=== PATIENT | female | born 1960 | race Caucasian/White ===

== ENCOUNTER → 2017-02-21 | Day surgery (SDC) | payer BC ==
[2017-02-01 14:10] VITALS: BMI 32.0
[~2017-02-21] VITALS: Ht 162.6 cm; Wt 86.4 kg
[~2017-02-21] MED LIST: CALC-51 PO; CITA20TA9 PO; LIDOCAINE HCL 2% 2 ML VIAL (20MG/ML) ONE; LISI40TA PO; METO-479 PO; MIDAZOLAM HCL 1 MG/ML 2ML VIAL ONE; MULTTAB58 PO; PROPOFOL IV EMULSION 10 MG/ML 20 ML VIAL IV ONE; SIMV40TA2 PO; SODIUM CHLORIDE 0.9% 500ML 500 ML IV ONE
[2017-02-21 12:14] VITALS: Ht 162.6 cm; Wt 86.4 kg
--- NOTE | 2017-02-21 12:59 | Endo History and Physical ---
History & Physical Date of Service: Feb 21, 2017. Chief Complaint: HX OF POLYPS Referring Physician: DR Sindy CAMACHO History of Present Illness 56 yo CF who presents for colonoscopy secondary to history of colon polyps. Past Surgical History Hx Cardiac Surgery: No Hx Internal Defibrillator: No Hx Pacemaker: No Hx Abdominal Surgery: No Hx of Implantable Prosthesis: No Hx Post-Op Nausea and Vomiting: No Hx Cancer Surgery: No Hx Thoracic Surgery: No Hx Urinary Tract Surgery: Yes (BLADDER TACK) Family History None Social History Smoking Status: Never Smoker Hx Substance Use: No Hx Alcohol Use: Yes (OCCASIONALLY) Allergies Coded Allergies: Morphine (Unverified Allergy, Unknown, RASH AND HALLUCINATIONS, 02/21/17) Current Medications Reported Home Medications Medications Dose Route/Sig Max Daily Dose Days Date Category [Calcium] 1 Tab PO QAM 02/01/17 Reported Multivitamin (Multiple Vitamin) 1 Tab Tab 1 Tab PO QAM 02/01/17 Reported Zocor (Simvastatin) 40 Mg Tab 40 Mg PO QPM 02/01/17 Reported Toprol Xl (Metoprolol Succinate) 100 Mg Tab 100 Mg PO HS 03/29/12 Reported Prinivil (Lisinopril) 40 Mg Tab 40 Mg PO QAM 03/19/12 Reported Celexa (Citalopram Hydrobromide) 20 Mg Tab 10 Mg PO QAM 03/19/12 Reported Vital Signs Weight (Kilograms): 86.36 Height (Feet): 5 Height (Inches): 4 Date Time Temp Pulse Resp B/P (MAP) Pulse Ox O2 Delivery O2 Flow Rate FiO2 02/21/17 12:20 36.7 68 20 156/85 (108) 97 Room Air Physical Exam General Appearance: WD/WN, no apparent distress Respiratory/Chest: Auscultation: breath sounds normal Cardiovascular: Heart Auscultation: RRR Abdomen: Bowel Sounds: normal Inspection & Palpation: soft, non-distended, no tenderness, guarding & rebound Assessment and Plan Assessment: 56 yo CF who presents for colonoscopy secondary to history of colon polyps. Plan: Proceed with colonoscopy.
--- NOTE | 2017-02-21 13:27 | Discharge Instructions ---
Endoscopy Patient Instructions Date / Procedure(s) Performed Feb 21, 2017. Colonoscopy Allergy Information Coded Allergies: Morphine (Unverified Allergy, Unknown, RASH AND HALLUCINATIONS, 02/21/17) Discharge Date / Findings Feb 21, 2017. Colon polyp Internal hemorrhoids Medication Instructions OK to resume all medications today as prescribed Reported Home Medications Medications Dose Route/Sig Max Daily Dose Days Date Category [Calcium] 1 Tab PO QAM 02/01/17 Reported Multivitamin (Multiple Vitamin) 1 Tab Tab 1 Tab PO QAM 02/01/17 Reported Zocor (Simvastatin) 40 Mg Tab 40 Mg PO QPM 02/01/17 Reported Toprol Xl (Metoprolol Succinate) 100 Mg Tab 100 Mg PO HS 03/29/12 Reported Prinivil (Lisinopril) 40 Mg Tab 40 Mg PO QAM 03/19/12 Reported Celexa (Citalopram Hydrobromide) 20 Mg Tab 10 Mg PO QAM 03/19/12 Reported Provider Instructions Activity Restrictions - No exercising or heavy lifting for 24 hours. - Do not drink alcohol the day of the procedure. - Do not drive a car or operate machinery until the day after the procedure. - Do not make any important decisions or sign important papers in 24 hours after the procedure. Following Day: - Return to full activity which may include returning to work/school. Diet Start your diet with liquids and light foods (jello, soup, juice, toast). Then eat your usual diet if not nauseated. Treatment For Common After Affects For mild abdominal pain, bloating, or excessive gas: - Rest - Eat lightly - Lie on right side Follow-Up Information Follow-up with DR Sindy CAMACHO as scheduled Anesthesia Information What You Should Know You have had a procedure that required some medicine to reduce anxiety and discomfort. This treatment is called moderate sedation. After receiving the treatment, you may be sleepy, but you will be able to breathe on your own. The effects of the treatment may last for several hours. Follow these instructions along with Activity/Diet recommendations noted above: * Do NOT do anything where dizziness or clumsiness would be dangerous. * Rest quietly at home today, then you can be up and about tomorrow. * Have a responsible person stay with you the rest of today. * You may have had an I.V. today. If so, you may take the dressing off later today. Recommendations Call your doctor if: * Trouble breathing * Continuous vomiting for more than 24 hours * Temperature above 101 degrees * Severe abdominal pain or bloating * Pain not relieved by pain medicine ordered * There is increased drainage or redness from any incision * A large amount of rectal bleeding greater than 2-3 tablespoons. (If you had a polyp/s removed or have hemorrhoids, a small amount of blood - from the rectum is to be expected.) * You have any unanswered questions or concerns. IN THE EVENT OF A SERIOUS EMERGENCY, GO TO THE NEAREST EMERGENCY ROOM Your discharge instructions were prepared by provider Russel Katz. Patient Instructions Signature Page Carmelita Hernandez Patient (or Guardian) Signature/Date: I have read and understand the instructions given to me by my caregivers. Caregiver/RN/Doctor Signature/Date: The above-named patient and/or guardian has received patient instructions on this date. + Original Patient Signature Page (only) stays with chart. Please make copy for patient.
--- NOTE | 2017-02-21 13:31 | GI REPORT ---
Procedure Date: 02/21/2017 12:51 PM Procedure: Colonoscopy Indications: High risk colon cancer surveillance: Personal history of colonic polyps Medicines: Monitored Anesthesia Care Complications: No immediate complications. Estimated Blood Loss: Estimated blood loss: none. Procedure: Pre-Anesthesia Assessment: - Prior to the procedure, a History and Physical was performed, and patient medications and allergies were reviewed. The patient's tolerance of previous anesthesia was also reviewed. The risks and benefits of the procedure and the sedation options and risks were discussed with the patient. All questions were answered, and informed consent was obtained. Prior Anticoagulants: The patient has taken no previous anticoagulant or antiplatelet agents. ASA Grade Assessment: II - A patient with mild systemic disease. After reviewing the risks and benefits, the patient was deemed in satisfactory condition to undergo the procedure. After I obtained informed consent, the scope was passed under direct vision. Throughout the procedure, the patient's blood pressure, pulse, and oxygen saturations were monitored continuously. The scope was introduced through the anus and advanced to the cecum, identified by appendiceal orifice and ileocecal valve. The colonoscopy was performed without difficulty. The patient tolerated the procedure well. The quality of the bowel preparation was good. The appendiceal orifice and the rectum were photographed. Findings: The perianal and digital rectal examinations were normal. A 4 mm polyp was found in the ascending colon. The polyp was sessile. The polyp was removed with a hot snare. Resection and retrieval were complete. The polyp was removed with a cold snare. Resection and retrieval were complete. Non-bleeding internal hemorrhoids were found during retroflexion. The hemorrhoids were small. Impression: - One 4 mm polyp in the ascending colon, removed with a hot snare and removed with a cold snare. Resected and retrieved. - Non-bleeding internal hemorrhoids. Recommendation: - Resume previous diet. - Continue present medications. - Repeat colonoscopy for surveillance based on pathology results. - Return to primary care physician as previously scheduled. Russel Katz, DO 02/21/2017 1:30:39 PM This report has been signed electronically. Note Initiated On: 02/21/2017 12:51 PM I attest to the content of the Intraoperative Record and orders documented therein, exceptions below
[2017-02-21 13:57] VITALS: BP 126/92; PULSE 72; O2SAT 99
--- NOTE | 2017-02-21 14:04 | Anesthesiology Progress Note ---
Anesthesia Post Op Note Date & Time Feb 21, 2017 at 14:04 Vital Signs Pain Intensity: 0 Vital Signs Past 12 Hours Date Time Temp Pulse Resp B/P (MAP) Pulse Ox O2 Delivery O2 Flow Rate FiO2 02/21/17 13:57 72 18 126/92 (103) 99 Room Air 02/21/17 13:42 67 20 138/82 (100) 99 Room Air 02/21/17 13:27 83 20 117/74 (88) 97 Room Air 02/21/17 12:20 36.7 68 20 156/85 (108) 97 Room Air Notes Mental Status: alert / awake / arousable, participated in evaluation Pt Amnestic to Procedure: Yes Nausea / Vomiting: adequately controlled Pain: adequately controlled Airway Patency, RR, SpO2: stable & adequate BP & HR: stable & adequate Hydration State: stable & adequate Anesthetic Complications: no major complications apparent
== END | disposition home or self-care (01) ==
LOC: C.GI 12:01
PROVIDERS: ATTEND Internal Medicine
DX: Z12.11 Encounter for screening for malignant neoplasm of colon (principal); D12.2 Benign neoplasm of ascending colon; K64.8 Other hemorrhoids; Z86.010 Personal history of colon polyps; F32.9 Major depressive disorder, single episode, unspecified; Z96.652 Presence of left artificial knee joint; F41.9 Anxiety disorder, unspecified; Z90.89 Acquired absence of other organs

== ENCOUNTER → 2017-03-26 | Outpatient (CLI) | payer BC ==
[~2017-03-26] MED LIST changes: -LIDOCAINE HCL 2% 2 ML VIAL (20MG/ML) ONE; -MIDAZOLAM HCL 1 MG/ML 2ML VIAL ONE; -PROPOFOL IV EMULSION 10 MG/ML 20 ML VIAL IV ONE; -SODIUM CHLORIDE 0.9% 500ML 500 ML IV ONE
[2017-03-26 17:51] LABS: BASO % 0.3 %; BASO ABS # 0.02 K/uL (0-0.2); EOS % 1.3 %; EOS ABS # 0.09 K/uL (0-0.5); HEMATOCRIT 41.5 % (37-47); HEMOGLOBIN 13.7 g/dL (12.0-16.0); IG# 0.04 K/uL (0.00-0.02); LYMPH % 27.8 %; LYMPH ABS # 1.87 K/uL (1.2-3.4); MEAN PLATELET VOLUME 9.3 fL (7.4-10.4); MONO % 7.3 %; MONO ABS # 0.49 K/uL (0.11-0.59); NEUT % 62.7 %; NEUT ABS # 4.22 K/uL (1.4-6.5); PLATELET COUNT 234 K/uL (130-400); RED CELL DISTRIBUTION WIDTH CV 13.3 % (11.5-14.5); RED CELL DISTRIBUTION WIDTH SD 43.9 fL (36.4-46.3); WHITE BLOOD COUNT 6.73 K/uL (4.8-10.8)
[2017-03-26 18:03] LABS: ALT/SGPT 29 U/L (12-78); AST/SGOT 17 U/L (15-37); BLOOD UREA NITROGEN 13 mg/dl (7-18); CALCIUM 8.7 mg/dl (8.5-10.1); CARBON DIOXIDE 28 mmol/L (21-32); CHOLESTEROL 163 mg/dl (0-200); CREATININE 0.67 mg/dl (0.60-1.20); GLUCOSE 98 mg/dl (70-99); POTASSIUM 3.8 mmol/L (3.5-5.1); SODIUM 139 mmol/L (136-145)
[2017-03-26 18:13] LABS: ALKALINE PHOSPHATASE 69 U/L (45-117); LDL CHOLESTEROL CALCULATED 65 mg/dl; TOTAL PROTEIN 7.5 gm/dl (6.4-8.2)
[2017-03-27 06:06] LABS: HEMOGLOBIN A1C 5.7 % (4.5-5.6)
== END | disposition home or self-care (01) ==
LOC: C.LABPBG 14:04
PROVIDERS: ATTEND Internal Medicine
DX: B35.1 Tinea unguium (principal); I10 Essential (primary) hypertension; E78.5 Hyperlipidemia, unspecified; F41.9 Anxiety disorder, unspecified; R73.9 Hyperglycemia, unspecified; Z11.59 Encounter for screening for other viral diseases

== ENCOUNTER 2022-02-21 07:54 | Observation (INO) ==
--- NOTE | 2022-02-21 08:30 | Emergency Department Note ---
History of Present Illness General Chief complaint: Diarrhea Stated complaint: DIARRHEA Time Seen by Provider: 02/21/22 08:27 History of Present Illness Maximum Pain Intensity: 5 This 61-year-old female patient presents to the emergency department with a friend for evaluation of diarrhea. She started at 1 AM this morning she started having diarrhea and took 2 Imodium without improvement. Now having small amounts of bright red blood and mucous in her stool. She states that it was a moderate amount of bleeding. Feels like she has to have a BM and just passes small amounts of stool and blood. Has had about 8 episodes of diarrhea since 1 am. Also having a lot of crampy and sharp lower abdominal pain since the symptoms started. She also feels very weak. Denies any fevers, but has had chills. She has a history of colitis when she was younger. Denies urinary symptoms. No known hemorrhoids. Has been taking a lot of NSAIDs recently b/c of headaches and joint pains. No blood thinners. Denies any chest pain or SOB. She was not feeling sick at all before this morning. Does not have frequent diarrhea, but will periodically get diarrhea. Denies recent antibiotic use, recent travel, drinking from outside water sources/well water, and denies known ill contacts. Last colonoscopy was 5 years ago and was normal per patient. Has had polyps in the past. No family history of colon cancer. Has never been dx with UC or Crohn's Disease. Home Medications Medication Instructions Recorded Confirmed Type lisinopril 40 mg tablet See Rx Instructions .Route 01/10/21 02/21/22 Rx .COMPLEX #90 tabs metoprolol succinate 100 mg See Rx Instructions .Route 01/10/21 02/21/22 Rx tablet,extended release 24 hr .COMPLEX #90 tabs betamethasone valerate 0.1 % 1 applic topical BID PRN skin 06/16/21 02/21/22 Rx topical cream irritation #45 grams rosuvastatin 5 mg tablet 5 mg PO DAILY #90 tabs 07/19/21 02/21/22 Rx alprazolam 0.25 mg tablet 0.25 mg PO DAILY PRN anxiety #30 02/08/22 02/21/22 Rx tabs Allergies Allergy/AdvReac Type Severity Reaction Status Date / Time morphine Allergy Unknown RASH AND Unverified 06/16/21 11:03 HALLUCINATIONS Past Med/Surg History Medical History Paravaginal defect Surgical History History of appendectomy History of left knee replacement 2014 History of thyroidectomy partial Family History Father , age 60 Myocardial infarction Hypertension Son Asthma Mother COPD (chronic obstructive pulmonary disease) Osteoarthritis Diabetes Grandmother (Maternal) Breast cancer Other Heart disease Denies family history of Ovarian cancer Prostate cancer Lung cancer Colorectal cancer Stroke Social History Smoking Status: Never smoker Second Hand Exposure: No; Hx Alcohol Use: Yes Alcohol type: beer Alcohol Intake Frequency: 2-4 x/Month Hx Substance Use: No Preferred Language: Danish Communication Ability: Effective Visual Impairment: Limited Hearing Ability: Normal marital status: Current Living Situation: Other current occupational status: employed 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 Physical Exam Vital Signs Vital Signs - 24 hr 02/21/22 08:02 Temperature 37 C Temperature Source Temporal Artery Scan Pulse Rate 54 L Respiratory Rate 20 Respiratory Effort / Characteristics Non-Labored Spontaneous Respiratory Depth Normal Respiratory Pattern Regular Blood Pressure 177/74 H Blood Pressure Mean 108 Blood Pressure Position Sitting Pulse Oximetry 98 Oxygen Delivery Method Room Air Sepsis Recent Fever Within 48 Hours No Sepsis New/Unexplained Change in Mental Status N/A Sepsis Action Taken by Nursing No Action Required VITALS: Vitals are noted on the nurse's note and reviewed by myself. GENERAL: Non toxic, no acute distress, non-diaphoretic. SKIN: Capillary refill <2 sec. EARS: External auditory canals clear, tympanic membranes pearly coello without erythema or effusion bilaterally. EYES: PERRLA. EOMI. Conjunctivae without injection, sclerae without icterus. NOSE: Patent without discharge. MOUTH: Mucous membranes moist. Uvula midline. Airway patent. NECK: Supple without nuchal rigidity. HEART: Regular rate and rhythm without gallops or rubs, but she does have a grade III/ systolic flow murmur that she states is known and was diagnosed as benign. LUNGS: Clear to auscultation bilaterally without wheezes, rales or rhonchi. No retractions or accessory muscle use. ABDOMEN: Positive bowel sounds x 4. Normal tympanic percussion. Soft, tender to palpation in the lower abdomen worse on the left side, without masses or organomegaly. Shafer sign negative. No guarding or rebound tenderness. No focal RLQ or LLQ tenderness. RECTAL EXAM: Permission to perform the exam. The patient declined mark up designer for the exam. No external lesions noted. No external hemorrhoids. Normal sphincter tone. Internal hemorrhoids are not enlarged. No masses, tears, fistulas, fissures, abscess, or other lesion noted. Stool is brown and Hemoccult positive. MUSCULOSKELETAL: No gross musculoskeletal defects. NEURO: Patient was alert and oriented to person place and time. No focal neurological deficits. Course Administered Medications Lactated Ringer's (Lr) 1,000 mls @ 100 mls/hr IV .Q10H KATE Stop: 02/22/22 08:14 Last Admin: 02/21/22 16:20 Dose: 100 mls/hr Documented By: CORY Discontinued Medications Sodium Chloride (Nss 1000ml) 1,000 mls @ 999 mls/hr IV .Q1H1M ONE Stop: 02/21/22 09:52 Last Infusion: 02/21/22 15:20 Dose: 0 mls/hr Documented By: Admin: 02/21/22 09:40 Dose: 999 mls/hr Documented By: AIDEN Ceftriaxone Sodium (Rocephin) 2,000 mg in 70 mls @ 100 mls/hr IV NOW STA; Protocol Stop: 02/21/22 12:57 Last Infusion: 02/21/22 15:18 Dose: 0 mls/hr Documented By: Admin: 02/21/22 13:03 Dose: 100 mls/hr Documented By: MESHA Metronidazole (Flagyl) 500 mg in 100 mls @ 100 mls/hr IV NOW STA Stop: 02/21/22 13:16 Last Infusion: 02/21/22 15:19 Dose: 0 mls/hr Documented By: Infusion: 02/21/22 15:19 Dose: 0 mls/hr Documented By: Admin: 02/21/22 14:03 Dose: 100 mls/hr Documented By: MESHA Ioversol (Optiray 350 100ml) 88 ml IV ONCE ONE Stop: 02/21/22 10:08 Last Admin: 02/21/22 10:08 Dose: 88 ml Documented By: ANNETTE Oxycodone HCl (Oxycodone Hcl Ir 5 Mg Tab (Immediate Release)) 5 mg PO NOW STA Stop: 02/21/22 10:51 Last Admin: 02/21/22 10:59 Dose: 5 mg Documented By: MESHA Medical Decision Making Differential Diagnosis Differential diagnosis includes hemorrhoid, abscess, fistula, fissure, colitis, ischemic colitis, diverticular bleed, ulcerative colitis, Crohn's disease, infectious colitis, NSAID use, polyp, mass, or others. Laboratory Data Attestation: I reviewed the patient's lab results. 02/21/22 09:04 02/21/22 09:04 Lab Results 02/21/22 02/21/22 02/21/22 Range/Units 09:04 09:04 09:04 WBC 11.74 H (4.8-10.8) K/ul RBC 4.72 (3.93-5.22) M/uL Hgb 14.0 (12.0-16.0) g/dl Hct 41.1 (34.1-44.9) % MCV 87.1 (80.0-100.0) fL MCH 29.7 (25.0-34.0) pg MCHC 34.1 (32.0-36.0) g/dL RDW Std Deviation 40.3 (36.4-46.3) fL RDW Coeff of Jesus 12.7 (11.5-14.5) % Plt Count 242 (130-400) K/uL MPV 8.9 L (9.4-12.3) fL Immature Gran % (Auto) 0.8 % Neut % (Auto) 82.5 % Lymph % (Auto) 10.6 % [place] % (Auto) 5.4 % Eos % (Auto) 0.3 % Baso % (Auto) 0.4 % Neut # (Auto) 9.68 H (1.4-6.5) K/uL Lymph # (Auto) 1.25 (1.2-3.4) K/uL [place] # (Auto) 0.63 (0.24-0.82) K/uL Eos # (Auto) 0.04 (0-0.50) K/uL Baso # (Auto) 0.05 (0-0.2) K/uL Immature Gran # (Auto) 0.09 H (0.00-0.02) K/uL ESR (0-30) mm/hr Sodium 139 (136-145) mmol/L Potassium 4.1 (3.5-5.1) mmol/L Chloride 103 (98-107) mmol/L Carbon Dioxide 29 (21-32) mmol/L Anion Gap 7 (3-11) BUN 13 (6-23) mg/dl Creatinine 0.68 (0.6-1.2) mg/dl Est Cr Clr Drug Dosing 94.5 ml/min Est GFR ( Amer) 108.7 ml/min Est GFR (Non-Af Amer) 93.7 ml/min BUN/Creatinine Ratio 19.1 (10-20) Glucose 126 H (70-99(Fasting)) mg/dl Calcium 9.6 (8.5-10.1) mg/dl Total Bilirubin 0.6 (0.2-1.0) mg/dl AST 16 (13-39) U/L ALT 16 (7-52) U/L Alkaline Phosphatase 66 (34-104) U/L C-Reactive Protein (0-0.5) mg/dl Total Protein 7.4 (6.0-8.3) gm/dl Albumin 4.4 (3.4-5.0) gm/dl Globulin 3.0 (2.5-4.0) gm/dl Albumin/Globulin Ratio 1.5 (0.9-2) Lipase 11 (11-82) U/L Urine Color Urine Appearance (Clear) Urine pH (4.5-7.5) Ur Specific Reynolds (1.000-1.030) Urine Protein (Negative) Urine Glucose (UA) (Negative) Urine Ketones (Negative) Urine Blood (Negative) Urine Nitrite (Negative) Urine Bilirubin (Negative) Urine Urobilinogen (Negative) Ur Leukocyte Esterase (Negative) Urine WBC (Auto) (0-5) /hpf Urine RBC (Auto) (0-4) /hpf U Hyaline Cast (Auto) (0-5) /lpf U Epithel Cells (Auto) (0-5) /lpf Urine Bacteria (Auto) (Negative) Stl C. cayetanensis PCR (NotDetected) Stool Rotavirus A PCR (NotDetected) Stl Adenov F 40/41 PCR (NotDetected) Stool Astrovirus (PCR) (NotDetected) Stool Campylobacter PCR (NotDetected) Stool Cryptosporidium PCR (NotDetected) Stl E.coli Shiga Tox PCR (NotDetected) Stl Enterotoxigenic E PCR (NotDetected) Stool EPEC (PCR) (NotDetected) Stool EAEC (PCR) (NotDetected) Stl E. histolytica PCR (NotDetected) Stool Giardia Lamblia PCR (NotDetected) Stool Salmonella PCR (NotDetected) Stool Sapovirus (PCR) (NotDetected) Stl P. shigelloides PCR (NotDetected) Stl Shigella/EIEC PCR (NotDetected) St Y.enterocolitica PCR (NotDetected) Stool Vibrio (PCR) (NotDetected) Stl Vibrio cholerae PCR (NotDetected) Stl Norovirus GI/GII PCR (NotDetected) Blood Type O Positive Antibody Screen NEGATIVE 02/21/22 02/21/22 02/21/22 Range/Units 09:04 09:04 09:11 WBC (4.8-10.8) K/ul RBC (3.93-5.22) M/uL Hgb (12.0-16.0) g/dl Hct (34.1-44.9) % MCV (80.0-100.0) fL MCH (25.0-34.0) pg MCHC (32.0-36.0) g/dL RDW Std Deviation (36.4-46.3) fL RDW Coeff of Jesus (11.5-14.5) % Plt Count (130-400) K/uL MPV (9.4-12.3) fL Immature Gran % (Auto) % Neut % (Auto) % Lymph % (Auto) % [place] % (Auto) % Eos % (Auto) % Baso % (Auto) % Neut # (Auto) (1.4-6.5) K/uL Lymph # (Auto) (1.2-3.4) K/uL [place] # (Auto) (0.24-0.82) K/uL Eos # (Auto) (0-0.50) K/uL Baso # (Auto) (0-0.2) K/uL Immature Gran # (Auto) (0.00-0.02) K/uL ESR 23 (0-30) mm/hr Sodium (136-145) mmol/L Potassium (3.5-5.1) mmol/L Chloride (98-107) mmol/L Carbon Dioxide (21-32) mmol/L Anion Gap (3-11) BUN (6-23) mg/dl Creatinine (0.6-1.2) mg/dl Est Cr Clr Drug Dosing ml/min Est GFR ( Amer) ml/min Est GFR (Non-Af Amer) ml/min BUN/Creatinine Ratio (10-20) Glucose (70-99(Fasting)) mg/dl Calcium (8.5-10.1) mg/dl Total Bilirubin (0.2-1.0) mg/dl AST (13-39) U/L ALT (7-52) U/L Alkaline Phosphatase (34-104) U/L C-Reactive Protein < 0.50 (0-0.5) mg/dl Total Protein (6.0-8.3) gm/dl Albumin (3.4-5.0) gm/dl Globulin (2.5-4.0) gm/dl Albumin/Globulin Ratio (0.9-2) Lipase (11-82) U/L Urine Color Yellow Urine Appearance Cloudy A (Clear) Urine pH 6.0 (4.5-7.5) Ur Specific Reynolds 1.009 (1.000-1.030) Urine Protein Negative (Negative) Urine Glucose (UA) Negative (Negative) Urine Ketones Negative (Negative) Urine Blood Negative (Negative) Urine Nitrite Negative (Negative) Urine Bilirubin Negative (Negative) Urine Urobilinogen Negative (Negative) Ur Leukocyte Esterase Negative (Negative) Urine WBC (Auto) 1-5 (0-5) /hpf Urine RBC (Auto) 0-4 (0-4) /hpf U Hyaline Cast (Auto) 1-5 (0-5) /lpf U Epithel Cells (Auto) >30 H (0-5) /lpf Urine Bacteria (Auto) 1+ H (Negative) Stl C. cayetanensis PCR (NotDetected) Stool Rotavirus A PCR (NotDetected) Stl Adenov F 40 PCR (NotDetected) Stool Astrovirus (PCR) (NotDetected) Stool Campylobacter PCR (NotDetected) Stool Cryptosporidium PCR (NotDetected) Stl E.coli Shiga Tox PCR (NotDetected) Stl Enterotoxigenic E PCR (NotDetected) Stool EPEC (PCR) (NotDetected) Stool EAEC (PCR) (NotDetected) Stl E. histolytica PCR (NotDetected) Stool Giardia Lamblia PCR (NotDetected) Stool Salmonella PCR (NotDetected) Stool Sapovirus (PCR) (NotDetected) Stl P. shigelloides PCR (NotDetected) Stl Shigella/EIEC PCR (NotDetected) St Y.enterocolitica PCR (NotDetected) Stool Vibrio (PCR) (NotDetected) Stl Vibrio cholerae PCR (NotDetected) Stl Norovirus GI/GII PCR (NotDetected) Blood Type Antibody Screen 02/21/22 Range/Units 09:35 WBC (4.8-10.8) K/ul RBC (3.93-5.22) M/uL Hgb (12.0-16.0) g/dl Hct (34.1-44.9) % MCV (80.0-100.0) fL MCH (25.0-34.0) pg MCHC (32.0-36.0) g/dL RDW Std Deviation (36.4-46.3) fL RDW Coeff of Jesus (11.5-14.5) % Plt Count (130-400) K/uL MPV (9.4-12.3) fL Immature Gran % (Auto) % Neut % (Auto) % Lymph % (Auto) % [place] % (Auto) % Eos % (Auto) % Baso % (Auto) % Neut # (Auto) (1.4-6.5) K/uL Lymph # (Auto) (1.2-3.4) K/uL [place] # (Auto) (0.24-0.82) K/uL Eos # (Auto) (0-0.50) K/uL Baso # (Auto) (0-0.2) K/uL Immature Gran # (Auto) (0.00-0.02) K/uL ESR (0-30) mm/hr Sodium (136-145) mmol/L Potassium (3.5-5.1) mmol/L Chloride (98-107) mmol/L Carbon Dioxide (21-32) mmol/L Anion Gap (3-11) BUN (6-23) mg/dl Creatinine (0.6-1.2) mg/dl Est Cr Clr Drug Dosing ml/min Est GFR ( Amer) ml/min Est GFR (Non-Af Amer) ml/min BUN/Creatinine Ratio (10-20) Glucose (70-99(Fasting)) mg/dl Calcium (8.5-10.1) mg/dl Total Bilirubin (0.2-1.0) mg/dl AST (13-39) U/L ALT (7-52) U/L Alkaline Phosphatase (34-104) U/L C-Reactive Protein (0-0.5) mg/dl Total Protein (6.0-8.3) gm/dl Albumin (3.4-5.0) gm/dl Globulin (2.5-4.0) gm/dl Albumin/Globulin Ratio (0.9-2) Lipase (11-82) U/L Urine Color Urine Appearance (Clear) Urine pH (4.5-7.5) Ur Specific Reynolds (1.000-1.030) Urine Protein (Negative) Urine Glucose (UA) (Negative) Urine Ketones (Negative) Urine Blood (Negative) Urine Nitrite (Negative) Urine Bilirubin (Negative) Urine Urobilinogen (Negative) Ur Leukocyte Esterase (Negative) Urine WBC (Auto) (0-5) /hpf Urine RBC (Auto) (0-4) /hpf U Hyaline Cast (Auto) (0-5) /lpf U Epithel Cells (Auto) (0-5) /lpf Urine Bacteria (Auto) (Negative) Stl C. cayetanensis PCR Not Detected (NotDetected) Stool Rotavirus A PCR Not Detected (NotDetected) Stl Adenov F 40/41 PCR Not Detected (NotDetected) Stool Astrovirus (PCR) Not Detected (NotDetected) Stool Campylobacter PCR Not Detected (NotDetected) Stool Cryptosporidium PCR Not Detected (NotDetected) Stl E.coli Shiga Tox PCR Not Detected (NotDetected) Stl Enterotoxigenic E PCR Not Detected (NotDetected) Stool EPEC (PCR) Not Detected (NotDetected) Stool EAEC (PCR) Not Detected (NotDetected) Stl E. histolytica PCR Not Detected (NotDetected) Stool Giardia Lamblia PCR Not Detected (NotDetected) Stool Salmonella PCR Not Detected (NotDetected) Stool Sapovirus (PCR) Not Detected (NotDetected) Stl P. shigelloides PCR Not Detected (NotDetected) Stl Shigella/EIEC PCR Not Detected (NotDetected) St Y.enterocolitica PCR Not Detected (NotDetected) Stool Vibrio (PCR) Not Detected (NotDetected) Stl Vibrio cholerae PCR Not Detected (NotDetected) Stl Norovirus GI/GII PCR Not Detected (NotDetected) Blood Type Antibody Screen Imaging Data Radiologist's Impression: Abdomen/Pelvis CT 02/21/22 08:52 CT OF THE ABDOMEN AND PELVIS WITH CONTRAST CLINICAL HISTORY: Lower abdominal pain. Rectal bleeding. COMPARISON STUDY: None. TECHNIQUE: Following IV administration of 88 mL of Optiray, axial images of the abdomen and pelvis were obtained from the lung bases to the proximal femurs. Images were reviewed in the axial, sagittal, and coronal planes. IV contrast was administered without complication. Automated exposure control was utilized for the study. A dose lowering technique was utilized adhering to the principles of ALARA. CT DOSE: 879.27 mGycm FINDINGS: 4 mm right lower lobe nodule on image 55 of 421 is probably benign. No pneumatosis, free air or portal venous gas is present. Innumerable hepatic cysts are noted. These measure up to 3.9 cm. There is no biliary or pancreatic ductal dilatation. The spleen, adrenal glands, kidneys and pancreas are unremarkable. There is no hydronephrosis. There is no evidence for a bowel obstruction. The appendix is not visualized. There is moderate wall thickening with mild pericolonic stranding involving the distal transverse colon, splenic flexure of the colon and proximal descending colon. There is no abscess. No additional sites of bowel wall thickening are present. Atrial vasculature is patent. There is no lymphadenopathy. No acute fracture or suspicious lesion within the visu alized skeletal structures is present. IMPRESSION: Moderate wall thickening of the distal transverse colon, splenic flexure and proximal descending colon. This represents a colitis. Although nonspecific, the distribution raises the possibility of ischemic colitis. ACT 112: Negative or not required by law. Electronically signed by: Horacio Arias M.D. 02/21/2022 10:21 AM MDM Narrative I examined the patient. An IV lock was placed and labs were drawn. Rectal exam was normal, but Hemoccult positive. She was given 1 L normal saline solution bolus. She was given oxycodone 5 mg p.o. for pain which she has done well within the past. White blood cell count elevated at 11.74, but normal hemoglobin at 14. Glucose 126, but CMP otherwise unremarkable. Lipase normal at 11. Urine without evidence for UTI. Stool bio fire was negative. C. difficile was not ordered since the diarrhea just started early this morning. COVID was negative. CT scan of the abdomen pelvis was reviewed by myself and read by radiology as above and shows moderate wall thickening of the distal transverse colon, splenic flexure, and proximal descending colon. This represen ts a colitis and while nonspecific, the distribution raises the possibility of ischemic colitis. I had a meaningful discussion about this patient with Dr. Madden and he recommends admission for further evaluation and treatment at this time. I spoke with the on-call hospitalist who agreed to admit the patient for further evaluation and treatment. Please refer to their dictation for further details. The patient's care was transferred in stable condition. Impression & Plan Colitis, Diarrhea, Rectal bleeding Discharge Plan Visit Data Chief Complaint: Diarrhea Stated Complaint: DIARRHEA ED Provider: Kobe Madden ED Midlevel Provider: Liliya Jurado Discharge Problem: Colitis, Diarrhea, Rectal bleeding Patient Disposition: Admitted As Inpatient Condition: Good Discharge Instructions Interventions: ED Discharge Assessment Last Done: 02/21/22 09:58
[2022-02-21] MEDS ORDERED: SODIUM CHLORIDE 0.9% 1000ML 1,000 ML IV ONE (08:52)
[2022-02-21 09:28] LABS: Basophils # (auto) 0.05 K/uL (0-0.2); Basophils % (auto) 0.4 %; Eosinophils # (auto) 0.04 K/uL (0-0.50); Eosinophils % (auto) 0.3 %; Hematocrit (blood only) 41.1 % (34.1-44.9); Immature Granulocytes # (auto) 0.09 K/uL (0.00-0.02); Immature Granulocytes % (auto) 0.8 %; Lymphocytes # (auto) 1.25 K/uL (1.2-3.4); Lymphocytes % (auto) 10.6 %; Mean Corpuscular Hemoglobin 29.7 pg (25.0-34.0); Mean Corpuscular Hgb Conc 34.1 g/dL (32.0-36.0); Mean Corpuscular Volume 87.1 fL (80.0-100.0); Mean Platelet Volume 8.9 fL (9.4-12.3); Monocytes # (auto) 0.63 K/uL (0.24-0.82); Monocytes % (auto) 5.4 %; Neutrophils # (auto) 9.68 K/uL (1.4-6.5); Neutrophils % (auto) 82.5 %; Platelet Count 242 K/uL (130-400); RDW Coefficient of Variation 12.7 % (11.5-14.5); RDW Standard Deviation 40.3 fL (36.4-46.3); Red Blood Count 4.72 M/uL (3.93-5.22); White Blood Count 11.74 K/ul (4.8-10.8)
[2022-02-21 09:47] LABS: Appearance Urine Cloudy (Clear); Bacteria Urine Automated 1+ (Negative); Bilirubin Urine Negative (Negative); Blood Urine Negative (Negative); Color Urine Yellow; Epithelial Cell Urine Auto >30 /lpf (0-5); Glucose Urine UA Negative (Negative); Ketones Urine Negative (Negative); Leukocyte Esterase Urine Negative (Negative); Nitrite Urine Negative (Negative); Protein Urine Negative (Negative); Specific Gravity Urine 1.009 (1.000-1.030); Urobilinogen Urine Negative (Negative)
[2022-02-21 09:54] LABS: Albumin Globulin Ratio 1.5 (0.9-2); Albumin Level 4.4 gm/dl (3.4-5.0); BUN Creatinine Ratio 19.1 (10-20); Bilirubin,Total 0.6 mg/dl (0.2-1.0); Calcium 9.6 mg/dl (8.5-10.1); Creatinine Clr Calc Pharmacy 94.5 ml/min; Est GFR (African American) 108.7 ml/min; Est GFR (Non-African American) 93.7 ml/min; Potassium 4.1 mmol/L (3.5-5.1); Total Protein 7.4 gm/dl (6.0-8.3)
[2022-02-21 10:07] LABS: RBC Urine Automated 0-4 /hpf (0-4)
[2022-02-21] MEDS ORDERED: OPTIRAY 350 100ml IV ONE (10:07)
--- NOTE | 2022-02-21 10:22 | CT Scan Report ---
CT OF THE ABDOMEN AND PELVIS WITH CONTRAST CLINICAL HISTORY: Lower abdominal pain. Rectal bleeding. COMPARISON STUDY: None. TECHNIQUE: Following IV administration of 88 mL of Optiray, axial images of the abdomen and pelvis we re obtained from the lung bases to the proximal femurs. Images were reviewed in the axial, sagittal, and coronal planes. IV contrast was administered without complication. Automated exposure control wa s utilized for the study. A dose lowering technique was utilized adhering to the principles of ALARA . CT DOSE: 879.27 mGycm FINDINGS: 4 mm right lower lobe nodule on image 55 of 421 is probably benign. No pneumatosis, free ai r or portal venous gas is present. Innumerable hepatic cysts are noted. These measure up to 3.9 cm. T here is no biliary or pancreatic ductal dilatation. The spleen, adrenal glands, kidneys and pancreas are unremarkable. There is no hydronephrosis. There is no evidence for a bowel obstruction. The appen devan is not visualized. There is moderate wall thickening with mild pericolonic stranding involving th e distal transverse colon, splenic flexure of the colon and proximal descending colon. There is no ab scess. No additional sites of bowel wall thickening are present. Atrial vasculature is patent. There is no lymphadenopathy. No acute fracture or suspicious lesion within the visualized skeletal structur es is present. IMPRESSION: Moderate wall thickening of the distal transverse colon, splenic flexure and proximal de scending colon. This represents a colitis. Although nonspecific, the distribution raises the possibil ity of ischemic colitis. ACT 112: Negative or not required by law. Electronically signed by: Horacio Arias M.D. 02/21/2022 10:21 AM
[2022-02-21] MEDS ORDERED: oxyCODONE HCL IR 5 MG TAB (IMMEDIATE RELEASE) PO STA (10:50)
[2022-02-21 11:08] LABS: Adenovirus F 40/41 PCR Not Detected (NotDetected); Astrovirus PCR Not Detected (NotDetected); Campylobacter PCR Not Detected (NotDetected); Cryptosporidium PCR Not Detected (NotDetected); Cyclospora cayetanensis PCR Not Detected (NotDetected); Entamoeba histolytica PCR Not Detected (NotDetected); Enteroaggregative E.coli(EAEC) Not Detected (NotDetected); Enteropathogenic E.coli (EPEC) Not Detected (NotDetected); Enterotoxigenic E.coli (ETEC) Not Detected (NotDetected); Giardia lamblia PCR Not Detected (NotDetected); Norovirus GI/GII PCR Not Detected (NotDetected); Plesiomonas shigelloides PCR Not Detected (NotDetected); Rotavirus A PCR Not Detected (NotDetected); Salmonella PCR Not Detected (NotDetected); Sapovirus PCR Not Detected (NotDetected); Shiga-like Toxin E.coli (STEC) Not Detected (NotDetected); Shigella/Enteroinvasive E.coli Not Detected (NotDetected); Vibrio cholerae PCR Not Detected (NotDetected); Vibrio species PCR Not Detected (NotDetected); Yersinia enterocolitica PCR Not Detected (NotDetected)
--- NOTE | 2022-02-21 12:02 | History & Physical Report ---
Date of Service February 21, 2022 Assessment & Plan (1) Colitis: Plan: -Admit to med/surge -Patient is currently afebrile, hypertensive at 171/96, and stable on RA -Started to developed diarrhea and lower abdominal pain last night, transitioned into bloody diarrhea this am -CT of the abd/pelvis with IV contrast showing signs of colitis, possibly ischemic colitis -Will start Ceftriaxone and IV flagyl now -S/P 1L NSS in the ED, will continue on LR at 100 mL/hr x 2 bags for now, if she cannot tolerate clear liquids later today will continue IV fluids overnight -Will order STAT lactate, ESR, CRP, and c. diff toxin now and review -Surgery consult placed, will follow up -AM CBC and CMP (2) HTN (hypertension): Plan: -Noted to be hypertensive at 171/96 on admission -Patient did take her am Lisinopril and take metoprolol HS -HTN at this time is likely due to her pain and discomfort from her acute illness -Continue HS metoprolol and continue AM lisinopril tomorrow as long as her renal function is stable (3) Psoriasis: Plan: -Continue topical betamethasone (4) Anxiety: Plan: -Continue prn Xanax -Would recommend PCP try and wean her off chronic xanax therapy and transition to an antidepressant (5) Hyperglycemia: Plan: -Has a previous history -Last A1c was 5.9 on 06/16/21 -Will get an am A1c to continue monitoring (6) Hyperlipidemia: Plan: -Continue statin Plan The patient was discussed with Dr. García at the time of the admission History of Present Illness Chief Complaint: Abdominal pain and diarrhea Primary Care Provider: Vamshi Browne MD Carmelita is a 61 year old female with a PMH significant for HTN, hyperlipidemia, previous hyperglycemia, Tubular adenoma of the colon, anxiety, psoriasis, and chronic fatigue disorder who presented to the [facility] ED on 02/21/22 with a chief complaint of abdominal pain and diarrhea. In the ED the patient was found to be afebrile, hypertensive at 177/74, and stable on room air. Labs were significant for a leukocytosis of 11.74 with absolute neutrophil count of 9.68, stable Hgb and platelets, stable cr at 0.68 with electrolytes WNL, LFTs WNL, lipase of 11, UA not indicative of UTI, negative gastrointestinal biofire but no c. diff or lactate had been obtained at the time of the admission. CT of the abdomen/pelvis with IV contrast was read as "Moderate wall thickening of the distal transverse colon, splenic flexure and proximal descending colon. This represents a colitis. Although nonspecific, the distribution raises the possibility of ischemic colitis.". Prior to admission the patient was given 1L NSS, and 5 mg PO oxycodone. At the time of the exam the patient was lying comfortably in bed in no acute distress. She states that she started to have multiple, non-bloody bowel movements along with cramping lower abdominal pain last night. She took one dose initially of Imodium which did not resolve her symptoms. She continue to have worsening lower abdominal pain and diarrhea overnight. This am she started to develop bloody bowel movements consisting of bright red blood. She confirmed that the blood was in the toilet bowl and not just when she was wiping. She denies recent fevers or chills and was eating and drinking well up until last night when her symptoms started. She denies a history of afib or other conditions which would increase her risk of emboli. Of note, she had two episodes of colitis when she was younger. Her first episode was at the age of 17 and her last was at the age of 19. She denies being given a previous diagnosis of inflammatory bowel disease. At the time of my exam she states that her symptoms are slightly improved compared to her arrival. I spoke to her regarding code status, she is a full code. She would want her boyfriend, Nam Castellano ([phone]) or her son to make decisions for her if she could not make them herself. Please refer to Dr. García's attestation for any changes to the treatment plan Allergies Allergy/AdvReac Type Severity Reaction Status Date / Time morphine Allergy Unknown RASH AND Unverified 06/16/21 11:03 HALLUCINATIONS Home Medications Medication Instructions Recorded Confirmed Type lisinopril 40 mg tablet See Rx Instructions .Route 01/10/21 02/21/22 Rx .COMPLEX #90 tabs metoprolol succinate 100 mg See Rx Instructions .Route 01/10/21 02/21/22 Rx tablet,extended release 24 hr .COMPLEX #90 tabs betamethasone valerate 0.1 % 1 applic topical BID PRN skin 06/16/21 02/21/22 Rx topical cream irritation #45 grams rosuvastatin 5 mg tablet 5 mg PO DAILY #90 tabs 07/19/21 02/21/22 Rx alprazolam 0.25 mg tablet 0.25 mg PO DAILY PRN anxiety #30 02/08/22 02/21/22 Rx tabs ciprofloxacin HCl 500 mg tablet 500 mg PO BID 7 days #14 tabs 02/22/22 Rx metronidazole 500 mg tablet 500 mg PO Q8H 7 days #21 tabs 02/22/22 Rx Past Med/Surg History Medical History Paravaginal defect Surgical History History of appendectomy History of left knee replacement 2014 History of thyroidectomy partial Family History Father , age 60 Myocardial infarction Hypertension Son Asthma Mother COPD (chronic obstructive pulmonary disease) Osteoarthritis Diabetes Grandmother (Maternal) Breast cancer Other Heart disease Denies family history of Ovarian cancer Prostate cancer Lung cancer Colorectal cancer Stroke Social History Smoking Status: Never smoker Second Hand Exposure: No; Hx Alcohol Use: Yes Alcohol type: beer Alcohol Intake Frequency: 2-4 x/Month Hx Substance Use: No Preferred Language: Romansh Communication Ability: Effective Visual Impairment: Limited Hearing Ability: Normal Medical Records Administrator Required: No Beliefs That Will Affect Care: None marital status: Current Living Situation: Other current occupational status: employed 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 All systems have been reviewed and are otherwise negative. Physical Exam Physical Exam: Physical Exam: General: In no acute distress, stated age, well-nourished, non-toxic appearing HEENT: Normocephalic, atraumatic, no scleral icterus, pupils around round, symmetrical, and reactive to light, moist mucus membranes, trachea midline, no thyromegaly Chest/Pulm: No respiratory distress, symmetrical chest expansion, clear breath sounds throughout Cardiac: RRR, systolic murmur noted (patient confirms this is not new) Abdomen: Negative for ascites and bruising, normoactive bowel sounds, soft, mildly tender to palpation in the lower abdominal sanchez otherwise non-tender to palpation Musculoskeletal: Symmetrical and without signs of acute trauma, upper and lower extremities with full ROM, no atrophy, spasticity, or flaccidity Extremities: Radial, dorsalis pedis, and posterior tibial pulses are intact and symmetrical, no edema noted in the BL LE's Skin: Warm, dry, no rashes , lesions, or scars noted Neuro: Alert and oriented to person, place, month, year, and president, no focal defects, CN II-XII tested and intact, finger to nose test negative, no tr emors noted Psych: No acute distress, calm and cooperative during the exam Results & Data Results & Data ([facility]) Vital Signs (Past 12 Hours) Vital Signs Temp Pulse Resp BP Pulse Ox O2 Del Method 02/21/22 08:02 37 C 54 L 20 177/74 H 98 Room Air Laboratory Results Abnormal lab results 02/21/22 02/21/22 02/21/22 Range/Units 09:04 09:04 09:11 WBC 11.74 H (4.8-10.8) K/ul MPV 8.9 L (9.4-12.3) fL Neut # (Auto) 9.68 H (1.4-6.5) K/uL Immature Gran # (Auto) 0.09 H (0.00-0.02) K/uL Glucose 126 H (70-99(Fasting)) mg/dl Urine Appearance Cloudy A (Clear) U Epithel Cells (Auto) >30 H (0-5) /lpf Urine Bacteria (Auto) 1+ H (Negative) Diagnostic Findings Abdomen/Pelvis CT 02/21/22 08:52 CT OF THE ABDOMEN AND PELVIS WITH CONTRAST CLINICAL HISTORY: Lower abdominal pain. Rectal bleeding. COMPARISON STUDY: None. TECHNIQUE: Following IV administration of 88 mL of Optiray, axial images of the abdomen and pelvis were obtained from the lung bases to the proximal femurs. Images were reviewed in the axial, sagittal, and coronal planes. IV contrast was administered without complication. Automated exposure control was utilized for the study. A dose lowering technique was utilized adhering to the principles of ALARA. CT DOSE: 879.27 mGycm FINDINGS: 4 mm right lower lobe nodule on image 55 of 421 is probably benign. No pneumatosis, free air or portal venous gas is present. Innumerable hepatic cysts are noted. These measure up to 3.9 cm. There is no biliary or pancreatic ductal dilatation. The spleen, adrenal glands, kidneys and pancreas are unremarkable. There is no hydronephrosis. There is no evidence for a bowel obstruction. The appendix is not visualized. There is moderate wall thickening with mild pericolonic stranding involving the distal transverse colon, splenic flexure of the colon and proximal descending colon. There is no abscess. No additional sites of bowel wall thickening are present. Atrial vasculature is patent. There is no lymphadenopathy. No acute fracture or suspicious lesion within the visualized skeletal structures is present. IMPRESSION: Moderate wall thickening of the distal transverse colon, splenic flexure and proximal descending colon. This represents a colitis. Although nonspecific, the distribution raises the possibility of ischemic colitis. ACT 112: Negative or not required by law. Electronically signed by: Horacio Arias M.D. 02/21/2022 10:21 AM ECG Additional Comments: No ECG available at the time of the admission, will obtain one now Code Status & VTE Plan Code Status Full code VTE Prophylaxis Plan VTE Prophylaxis will be ordered: Yes Supervising Physician Co-Signing Physician Notes I personally saw and examined the patient. I verified all jean points and agree with Hema Mancini PA-C with the following exceptions and/or additions: 61-year-old female presents with abdominal pain and diarrhea starting this morning. Distribution concerning for ischemic colitis on CT. O/E HS1+2, no murmurs, Chest CTAB, Abdo SNT, non distended, no guarding or rebound tenderness A/P Colitis -suspect ischemic with no large vessel involvement. N.p.o., IV antibiotics, IV fluids. C. diff PCR added PG Care Time/CCT Total # of Minutes Spent Total Time Spent with Patient: Total time spent is greater than 50% in coordination of care (as documented) at patient's floor/unit and/or counseling patient: Coding [place] [address] INT INP/OBS CARE MIN Patient Type Established Medical Decision Making High Complexity Diagnoses Colitis K52.9 HTN (hypertension) I10 Psoriasis L40.9 Anxiety F41.9 Hyperglycemia R73.9 Hyperlipidemia E78.5
[2022-02-21] MEDS ORDERED: cefTRIAXone SODIUM 2,000 MG/70 ML BAG IV STA (12:16)
[2022-02-21] MEDS ORDERED: metroNIDAZOLE 500 MG/100 ML BAG IV STA (12:17)
--- NOTE | 2022-02-21 14:05 | Surgery Consultation ---
Date of Consultation February 21, 2022 Assessment & Plan (1) Colitis: 61 year-old female with sudden onset of lower abdominal pain with diarrhea last evening which progressed to bloody diarrhea this am. CT scan of abdomen and pelvis with IV contrast showing moderate wall thickening with mild pericolonic stranding involving the distal transverse colon, splenic flexure of the colon and proximal descending colon. lactic acid wnl. Mild leukocytosis. Abdominal exam is without peritonitis. Hemodynamically stable. Plan: No surgical intervention required at this time. Continue conservative measures with IV fluids, IV antibiotics, and NPO for bowel rest. Recommend GI consultation. Is due for colonoscopy this year and will likely need colonoscopy once our of this acute phase. await c.diff results Repeat am labs while npo Continue current medical management will follow along Dr. Pearson has seen and examined pt, agrees with above see addendum for further recommendations/plan. History of Present Illness Reason for Consultation: Possible ischemic colitis History of Present Illness Carmelita is a 61 year old female with a PMH of HTN, hyperlipidemia, previous hyperglycemia, Tubular adenoma of the colon, anxiety, psoriasis, and chronic fatigue disorder who presented to the emergency department today due to abdominal pain and diarrhea. States this started last evening. Took Imodium which did not help. Then developed bloody diarrhea and presented to the ED. She had a CT scan of abdomen and pelvis with IV contrast which showed moderate wall thickening with mild pericolonic stranding involving the distal transverse, splenic flexure and proximal descending colon. The vasculature is patent. She had mild leukocytosis of 11,700. Afebrile, tachycardic but otherwise stable. Lactic acid wnl, stool studies negative, c. diff ordered. States she is feeling better since presenting to the emergency. Pain is better. States she had history of colitis when she was a teenager but otherwise no other issues. States she has had colonoscopy in past but is due this year. History of polyps. No other concerns or prior scopes. Allergies Allergy/AdvReac Type Severity Reaction Status Date / Time morphine Allergy Unknown RASH AND Unverified 06/16/21 11:03 HALLUCINATIONS Home Medications Medication Instructions Recorded Confirmed Type lisinopril 40 mg tablet See Rx Instructions .Route 01/10/21 02/21/22 Rx .COMPLEX #90 tabs metoprolol succinate 100 mg See Rx Instructions .Route 01/10/21 02/21/22 Rx tablet,extended release 24 hr .COMPLEX #90 tabs betamethasone valerate 0.1 % 1 applic topical BID PRN skin 06/16/21 02/21/22 Rx topical cream irritation #45 grams rosuvastatin 5 mg tablet 5 mg PO DAILY #90 tabs 07/19/21 02/21/22 Rx alprazolam 0.25 mg tablet 0.25 mg PO DAILY PRN anxiety #30 02/08/22 02/21/22 Rx tabs Patient History Medical History Paravaginal defect Surgical History History of appendectomy History of left knee replacement 2014 History of thyroidectomy partial Family History Father , age 60 Myocardial infarction Hypertension Son Asthma Mother COPD (chronic obstructive pulmonary disease) Osteoarthritis Diabetes Grandmother (Maternal) Breast cancer Other Heart disease Denies family history of Ovarian cancer Prostate cancer Lung cancer Colorectal cancer Stroke Social History Smoking Status: Never smoker Second Hand Exposure: No; Hx Alcohol Use: Yes Alcohol type: beer Alcohol Intake Frequency: 2-4 x/Month Hx Substance Use: No Preferred Language: Telugu Communication Ability: Effective Visual Impairment: Limited Hearing Ability: Normal marital status: Current Living Situation: Other current occupational status: employed 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 How many Children do You have: 2 Feels Safe at Home: Yes Childhood Exposure to Second-Hand Smoke: Yes caffeine: Yes Dental Care, Regularly: Yes Physical Activity Frequency: Does not Exercise Seatbelt Use: always Sunscreen Use: Yes Review of Systems Review of Systems: All systems reviewed & are unremarkable except as noted in HPI & below Physical Exam Constitutional: WD/WN, vitals as above + obese, cooperative and comfortable; no acute distress and not ill appearing Neck: normal visual inspection and trachea midline Respiratory: normal respiratory effort, lungs clear to auscultation Cardiovascular: Rate/Rhythm: regular rate and regular rhythm Heart Sounds: normal S1, normal S2 and + murmur Gastrointestinal (Abdomen): Inspection/Auscultation: abdomen normal to inspection; abdomen not distended Percussion/Palpation: + abdomen tender (LLQ deep) and abdomen soft; no guarding, abdomen not rigid and abdomen not firm no peritonitis Skin: no rashes, warm and dry Psychiatric: A+Ox3, euthymic affect Results & Data ([facility]) Vital Signs (Past 12 Hours) Vital Signs Temp Pulse Pulse Resp BP BP Pulse Ox 02/21/22 12:06 57 L 20 171/96 H 98 02/21/22 08:02 37 C 54 L 20 177/74 H 98 O2 Del Method 02/21/22 12:06 02/21/22 08:02 Room Air Laboratory Results 02/21/22 02/21/22 02/21/22 Range/Units Unknown 12:45 09:35 WBC (4.8-10.8) K/ul RBC (3.93-5.22) M/uL Hgb (12.0-16.0) g/dl Hct (34.1-44.9) % MCV (80.0-100.0) fL MCH (25.0-34.0) pg MCHC (32.0-36.0) g/dL RDW Std Deviation (36.4-46.3) fL RDW Coeff of Jesus (11.5-14.5) % Plt Count (130-400) K/uL MPV (9.4-12.3) fL Immature Gran % (Auto) % Neut % (Auto) % Lymph % (Auto) % Armstrong % (Auto) % Eos % (Auto) % Baso % (Auto) % Neut # (Auto) (1.4-6.5) K/uL Lymph # (Auto) (1.2-3.4) K/uL Armstrong # (Auto) (0.24-0.82) K/uL Eos # (Auto) (0-0.50) K/uL Baso # (Auto) (0-0.2) K/uL Immature Gran # (Auto) (0.00-0.02) K/uL ESR (0-30) mm/hr Sodium (136-145) mmol/L Potassium (3.5-5.1) mmol/L Chloride (98-107) mmol/L Carbon Dioxide (21-32) mmol/L Anion Gap (3-11) BUN (6-23) mg/dl Creatinine (0.6-1.2) mg/dl Est Cr Clr Drug Dosing ml/min Est GFR ( Amer) ml/min Est GFR (Non-Af Amer) ml/min BUN/Creatinine Ratio (10-20) Glucose (70-99(Fasting)) mg/dl Lactate 0.9 (0.4-2.0) mmol/L Calcium (8.5-10.1) mg/dl Total Bilirubin (0.2-1.0) mg/dl AST (13-39) U/L ALT (7-52) U/L Alkaline Phosphatase (34-104) U/L C-Reactive Protein (0-0.5) mg/dl Total Protein (6.0-8.3) gm/dl Albumin (3.4-5.0) gm/dl Globulin (2.5-4.0) gm/dl Albumin/Globulin Ratio (0.9-2) Lipase (11-82) U/L Urine Color Urine Appearance (Clear) Urine pH (4.5-7.5) Ur Specific [place] (1.000-1.030) Urine Protein (Negative) Urine Glucose (UA) (Negative) Urine Ketones (Negative) Urine Blood (Negative) Urine Nitrite (Negative) Urine Bilirubin (Negative) Urine Urobilinogen (Negative) Ur Leukocyte Esterase (Negative) Urine WBC (Auto) (0-5) /hpf Urine RBC (Auto) (0-4) /hpf U Hyaline Cast (Auto) (0-5) /lpf U Epithel Cells (Auto) (0-5) /lpf Urine Bacteria (Auto) (Negative) Stl C. cayetanensis PCR Not Detected (NotDetected) Stool Rotavirus A PCR Not Detected (NotDetected) Stl Adenov F 40/41 PCR Not Detected (NotDetected) Stool Astrovirus (PCR) Not Detected (NotDetected) Stool Campylobacter PCR Not Detected (NotDetected) Stool Cryptosporidium PCR Not Detected (NotDetected) Stl E.coli Shiga Tox PCR Not Detected (NotDetected) Stl Enterotoxigenic E PCR Not Detected (NotDetected) Stool EPEC (PCR) Not Detected (NotDetected) Stool EAEC (PCR) Not Detected (NotDetected) Stl E. histolytica PCR Not Detected (NotDetected) Stool Giardia Lamblia PCR Not Detected (NotDetected) Stool Salmonella PCR Not Detected (NotDetected) Stool Sapovirus (PCR) Not Detected (NotDetected) Stl P. shigelloides PCR Not Detected (NotDetected) Stl Shigella/EIEC PCR Not Detected (NotDetected) St Y.enterocolitica PCR Not Detected (NotDetected) Stool Vibrio (PCR) Not Detected (NotDetected) Stl Vibrio cholerae PCR Not Detected (NotDetected) Stl Norovirus GI/GII PCR Not Detected (NotDetected) SARS-CoV-2, RNA, NAAT NEGATIVE (NEGATIVE) Blood Type Antibody Screen 02/21/22 02/21/22 02/21/22 Range/Units 09:11 09:04 09:04 WBC (4.8-10.8) K/ul RBC (3.93-5.22) M/uL Hgb (12.0-16.0) g/dl Hct (34.1-44.9) % MCV (80.0-100.0) fL MCH (25.0-34.0) pg MCHC (32.0-36.0) g/dL RDW Std Deviation (36.4-46.3) fL RDW Coeff of Jesus (11.5-14.5) % Plt Count (130-400) K/uL MPV (9.4-12.3) fL Immature Gran % (Auto) % Neut % (Auto) % Lymph % (Auto) % Armstrong % (Auto) % Eos % (Auto) % Baso % (Auto) % Neut # (Auto) (1.4-6.5) K/uL Lymph # (Auto) (1.2-3.4) K/uL Armstrong # (Auto) (0.24-0.82) K/uL Eos # (Auto) (0-0.50) K/uL Baso # (Auto) (0-0.2) K/uL Immature Gran # (Auto) (0.00-0.02) K/uL ESR 23 (0-30) mm/hr Sodium (136-145) mmol/L Potassium (3.5-5.1) mmol/L Chloride (98-107) mmol/L Carbon Dioxide (21-32) mmol/L Anion Gap (3-11) BUN (6-23) mg/dl Creatinine (0.6-1.2) mg/dl Est Cr Clr Drug Dosing ml/min Est GFR ( Amer) ml/min Est GFR (Non-Af Amer) ml/min BUN/Creatinine Ratio (10-20) Glucose (70-99(Fasting)) mg/dl Lactate (0.4-2.0) mmol/L Calcium (8.5-10.1) mg/dl Total Bilirubin (0.2-1.0) mg/dl AST (13-39) U/L ALT (7-52) U/L Alkaline Phosphatase (34-104) U/L C-Reactive Protein < 0.50 (0-0.5) mg/dl Total Protein (6.0-8.3) gm/dl Albumin (3.4-5.0) gm/dl Globulin (2.5-4.0) gm/dl Albumin/Globulin Ratio (0.9-2) Lipase (11-82) U/L Urine Color Yellow Urine Appearance Cloudy A (Clear) Urine pH 6.0 (4.5-7.5) Ur Specific [place] 1.009 (1.000-1.030) Urine Protein Negative (Negative) Urine Glucose (UA) Negative (Negative) Urine Ketones Negative (Negative) Urine Blood Negative (Negative) Urine Nitrite Negative (Negative) Urine Bilirubin Negative (Negative) Urine Urobilinogen Negative (Negative) Ur Leukocyte Esterase Negative (Negative) Urine WBC (Auto) 1-5 (0-5) /hpf Urine RBC (Auto) 0-4 (0-4) /hpf U Hyaline Cast (Auto) 1-5 (0-5) /lpf U Epithel Cells (Auto) >30 H (0-5) /lpf Urine Bacteria (Auto) 1+ H (Negative) Stl C. cayetanensis PCR (NotDetected) Stool Rotavirus A PCR (NotDetected) Stl Adenov F 40/41 PCR (NotDetected) Stool Astrovirus (PCR) (NotDetected) Stool Campylobacter PCR (NotDetected) Stool Cryptosporidium PCR (NotDetected) Stl E.coli Shiga Tox PCR (NotDetected) Stl Enterotoxigenic E PCR (NotDetected) Stool EPEC (PCR) (NotDetected) Stool EAEC (PCR) (NotDetected) Stl E. histolytica PCR (NotDetected) Stool Giardia Lamblia PCR (NotDetected) Stool Salmonella PCR (NotDetected) Stool Sapovirus (PCR) (NotDetected) Stl P. shigelloides PCR (NotDetected) Stl Shigella/EIEC PCR (NotDetected) St Y.enterocolitica PCR (NotDetected) Stool Vibrio (PCR) (NotDetected) Stl Vibrio cholerae PCR (NotDetected) Stl Norovirus GI/GII PCR (NotDetected) SARS-CoV-2, RNA, NAAT (NEGATIVE) Blood Type Antibody Screen 02/21/22 02/21/22 02/21/22 Range/Units 09:04 09:04 09:04 WBC 11.74 H (4.8-10.8) K/ul RBC 4.72 (3.93-5.22) M/uL Hgb 14.0 (12.0-16.0) g/dl Hct 41.1 (34.1-44.9) % MCV 87.1 (80.0-100.0) fL MCH 29.7 (25.0-34.0) pg MCHC 34.1 (32.0-36.0) g/dL RDW Std Deviation 40.3 (36.4-46.3) fL RDW Coeff of Jesus 12.7 (11.5-14.5) % Plt Count 242 (130-400) K/uL MPV 8.9 L (9.4-12.3) fL Immature Gran % (Auto) 0.8 % Neut % (Auto) 82.5 % Lymph % (Auto) 10.6 % Armstrong % (Auto) 5.4 % Eos % (Auto) 0.3 % Baso % (Auto) 0.4 % Neut # (Auto) 9.68 H (1.4-6.5) K/uL Lymph # (Auto) 1.25 (1.2-3.4) K/uL Armstrong # (Auto) 0.63 (0.24-0.82) K/uL Eos # (Auto) 0.04 (0-0.50) K/uL Baso # (Auto) 0.05 (0-0.2) K/uL Immature Gran # (Auto) 0.09 H (0.00-0.02) K/uL ESR (0-30) mm/hr Sodium 139 (136-145) mmol/L Potassium 4.1 (3.5-5.1) mmol/L Chloride 103 (98-107) mmol/L Carbon Dioxide 29 (21-32) mmol/L Anion Gap 7 (3-11) BUN 13 (6-23) mg/dl Creatinine 0.68 (0.6-1.2) mg/dl Est Cr Clr Drug Dosing 94.5 ml/min Est GFR ( Amer) 108.7 ml/min Est GFR (Non-Af Amer) 93.7 ml/min BUN/Creatinine Ratio 19.1 (10-20) Glucose 126 H (70-99(Fasting)) mg/dl Lactate (0.4-2.0) mmol/L Calcium 9.6 (8.5-10.1) mg/dl Total Bilirubin 0.6 (0.2-1.0) mg/dl AST 16 (13-39) U/L ALT 16 (7-52) U/L Alkaline Phosphatase 66 (34-104) U/L C-Reactive Protein (0-0.5) mg/dl Total Protein 7.4 (6.0-8.3) gm/dl Albumin 4.4 (3.4-5.0) gm/dl Globulin 3.0 (2.5-4.0) gm/dl Albumin/Globulin Ratio 1.5 (0.9-2) Lipase 11 (11-82) U/L Urine Color Urine Appearance (Clear) Urine pH (4.5-7.5) Ur Specific [place] (1.000-1.030) Urine Protein (Negative) Urine Glucose (UA) (Negative) Urine Ketones (Negative) Urine Blood (Negative) Urine Nitrite (Negative) Urine Bilirubin (Negative) Urine Urobilinogen (Negative) Ur Leukocyte Esterase (Negative) Urine WBC (Auto) (0-5) /hpf Urine RBC (Auto) (0-4) /hpf U Hyaline Cast (Auto) (0-5) /lpf U Epithel Cells (Auto) (0-5) /lpf Urine Bacteria (Auto) (Negative) Stl C. cayetanensis PCR (NotDetected) Stool Rotavirus A PCR (NotDetected) Stl Adenov F 40/41 PCR (NotDetected) Stool Astrovirus (PCR) (NotDetected) Stool Campylobacter PCR (NotDetected) Stool Cryptosporidium PCR (NotDetected) Stl E.coli Shiga Tox PCR (NotDetected) Stl Enterotoxigenic E PCR (NotDetected) Stool EPEC (PCR) (NotDetected) Stool EAEC (PCR) (NotDetected) Stl E. histolytica PCR (NotDetected) Stool Giardia Lamblia PCR (NotDetected) Stool Salmonella PCR (NotDetected) Stool Sapovirus (PCR) (NotDetected) Stl P. shigelloides PCR (NotDetected) Stl Shigella/EIEC PCR (NotDetected) St Y.enterocolitica PCR (NotDetected) Stool Vibrio (PCR) (NotDetected) Stl Vibrio cholerae PCR (NotDetected) Stl Norovirus GI/GII PCR (NotDetected) SARS-CoV-2, RNA, NAAT (NEGATIVE) Blood Type O Positive Antibody Screen NEGATIVE Diagnostic Findings CT OF THE ABDOMEN AND PELVIS WITH CONTRAST CLINICAL HISTORY: Lower abdominal pain. Rectal bleeding. COMPARISON STUDY: None. TECHNIQUE: Following IV administration of 88 mL of Optiray, axial images of the abdomen and pelvis were obtained from the lung bases to the proximal femurs. Images were reviewed in the axial, sagittal, and coronal planes. IV contrast was administered without complication. Automated exposure control was utilized for the study. A dose lowering technique was utilized adhering to the principles of ALARA. CT DOSE: 879.27 mGycm FINDINGS: 4 mm right lower lobe nodule on image 55 of 421 is probably benign. No pneumatosis, free air or portal venous gas is present. Innumerable hepatic cysts are noted. These measure up to 3.9 cm. There is no biliary or pancreatic ductal dilatation. The spleen, adrenal glands, kidneys and pancreas are unremarkable. There is no hydronephrosis. There is no evidence for a bowel obstruction. The appendix is not visualized. There is moderate wall thickening with mild pericolonic stranding involving the distal transverse colon, splenic flexure of the colon and proximal descending colon. There is no abscess. No additional sites of bowel wall thickening are present. Atrial vasculature is patent. There is no lymphadenopathy. No acute fracture or suspicious lesion within the visualized skeletal structures is present. IMPRESSION: Moderate wall thickening of the distal transverse colon, splenic flexure and proximal descending colon. This represents a colitis. Although nonspecific, the distribution raises the possibility of ischemic colitis.
[2022-02-21] MEDS ORDERED: BETAMETHASONE VAL 0.1% CR 15 GM TOP PRN (15:34)
[2022-02-21] MEDS ORDERED: ALPRAZolam 0.5 MG TABLET PO PRN (15:37)
[2022-02-21] MEDS: LACTATED RINGER'S 1,000 ML IV SCH (16:20)
[2022-02-21] MEDS ORDERED: METOPROLOL SUCC 50MG EXT REL TAB PO SCH (18:15)
[2022-02-21] MEDS: ACETAMINOPHEN 1,000 MG/100 ML VIAL IV PRN (21:48)
[2022-02-21] MEDS: metroNIDAZOLE 500 MG/100 ML BAG IV SCH (22:12)
[2022-02-22] MEDS: LACTATED RINGER'S 1,000 ML IV SCH (04:58)
[2022-02-22] MEDS: metroNIDAZOLE 500 MG/100 ML BAG IV SCH ×2 (06:18→14:34)
[2022-02-22 07:28] LABS: Hematocrit (blood only) 36.5 % (34.1-44.9); Hemoglobin 12.2 g/dl (12.0-16.0); Mean Corpuscular Hemoglobin 29.8 pg (25.0-34.0); Mean Corpuscular Hgb Conc 33.4 g/dL (32.0-36.0); Mean Platelet Volume 8.9 fL (9.4-12.3); Platelet Count 175 K/uL (130-400); RDW Coefficient of Variation 12.9 % (11.5-14.5); RDW Standard Deviation 41.9 fL (36.4-46.3); White Blood Count 8.19 K/ul (4.8-10.8)
[2022-02-22 08:04] LABS: Albumin Globulin Ratio 1.6 (0.9-2); Albumin Level 3.7 gm/dl (3.4-5.0); BUN Creatinine Ratio 12.7 (10-20); Bilirubin,Total 0.6 mg/dl (0.2-1.0); Calcium 8.5 mg/dl (8.5-10.1); Creatinine Clr Calc Pharmacy 115.8 ml/min; Est GFR (African American) 116.5 ml/min; Est GFR (Non-African American) 100.5 ml/min; Globulin 2.3 gm/dl (2.5-4.0); Potassium 3.6 mmol/L (3.5-5.1)
[2022-02-22] MEDS ORDERED: ROSUVASTATIN CALCIUM 5 MG TAB PO SCH (09:00)
[2022-02-22] MEDS ORDERED: METOPROLOL SUCC 50MG EXT REL TAB PO SCH (09:00)
[2022-02-22] MEDS ORDERED: lisinopril 40 MG TAB PO SCH (09:00)
--- NOTE | 2022-02-22 09:05 | Hospitalist Progress Note ---
Date of Service February 22, 2022 Assessment & Plan (1) Colitis: Plan: -Admit to med/surge -Patient is currently afebrile, hypertensive at 171/96, and stable on RA -Started to developed diarrhea and lower abdominal pain last night, transitioned into bloody diarrhea this am -CT of the abd/pelvis with IV contrast showing signs of colitis, possibly ischemic colitis -Will start Ceftriaxone and IV flagyl now -S/P 1L NSS in the ED, will continue on LR at 100 mL/hr x 2 bags for now, if she cannot tolerate clear liquids later today will continue IV fluids overnight -Will order STAT lactate, ESR, CRP, and c. diff toxin now and review -Surgery consult placed, will follow up -AM CBC and CMP (2) HTN (hypertension): Plan: -Noted to be hypertensive at 171/96 on admission -Patient did take her am Lisinopril and take metoprolol HS -HTN at this time is likely due to her pain and discomfort from her acute illness -Continue HS metoprolol and continue AM lisinopril tomorrow as long as her renal function is stable (3) Psoriasis: Plan: -Continue topical betamethasone (4) Anxiety: Plan: -Continue prn Xanax -Would recommend PCP try and wean her off chronic xanax therapy and transition to an antidepressant (5) Hyperglycemia: Plan: -Has a previous history -Last A1c was 5.9 on 06/16/21 -Will get an am A1c to continue monitoring (6) Hyperlipidemia: Plan: -Continue statin Plan The patient was discussed with Dr. García at the time of the admission Admission and Anticipated Discharge Date Admission Date: February 21, 2022 Subjective eval this morning, doing well moved bowels, no further blood noted no further abdominal pain, nausea or vomiting remained on abx, seen by GI but not surgery yet today Has not eaten anything yet, but she would like to go home today if possible will order diet, see how she tolerates and touch base w/ specialists. GI to arrange for outpt scope in 2 months once healed from current ordeal. questions/concerns addressed at this time. Results & Data Results & Data ([facility]) Vital Signs (Past 12 Hours) Vital Signs Temp Pulse Resp BP Pulse Ox O2 Del Method 02/22/22 07:30 36.9 C 66 16 145/74 H 93 Room Air 02/21/22 22:06 37.2 C 64 16 164/77 H 95 Room Air Laboratory Results 02/22/22 02/22/22 02/22/22 Range/Units 08:23 06:36 06:36 WBC (4.8-10.8) K/ul RBC (3.93-5.22) M/uL Hgb (12.0-16.0) g/dl Hct (34.1-44.9) % MCV (80.0-100.0) fL MCH (25.0-34.0) pg MCHC (32.0-36.0) g/dL RDW Std Deviation (36.4-46.3) fL RDW Coeff of Jesus (11.5-14.5) % Plt Count (130-400) K/uL MPV (9.4-12.3) fL Immature Gran % (Auto) % Neut % (Auto) % Lymph % (Auto) % [place] % (Auto) % Eos % (Auto) % Baso % (Auto) % Neut # (Auto) (1.4-6.5) K/uL Lymph # (Auto) (1.2-3.4) K/uL [place] # (Auto) (0.24-0.82) K/uL Eos # (Auto) (0-0.50) K/uL Baso # (Auto) (0-0.2) K/uL Immature Gran # (Auto) (0.00-0.02) K/uL ESR (0-30) mm/hr Sodium 140 (136-145) mmol/L Potassium 3.6 (3.5-5.1) mmol/L Chloride 108 H (98-107) mmol/L Carbon Dioxide 26 (21-32) mmol/L Anion Gap 6 (3-11) BUN 7 (6-23) mg/dl Creatinine 0.55 L (0.6-1.2) mg/dl Est Cr Clr Drug Dosing 115.8 ml/min Est GFR ( Amer) 116.5 ml/min Est GFR (Non-Af Amer) 100.5 ml/min BUN/Creatinine Ratio 12.7 (10-20) Glucose 105 H (70-99(Fasting)) mg/dl Estimat Average Glucose Pending Hemoglobin A1c Pending Lactate (0.4-2.0) mmol/L Calcium 8.5 (8.5-10.1) mg/dl Total Bilirubin 0.6 (0.2-1.0) mg/dl AST 11 L (13-39) U/L ALT 11 (7-52) U/L Alkaline Phosphatase 56 (34-104) U/L C-Reactive Protein (0-0.5) mg/dl Total Protein 6.0 (6.0-8.3) gm/dl Albumin 3.7 (3.4-5.0) gm/dl Globulin 2.3 L (2.5-4.0) gm/dl Albumin/Globulin Ratio 1.6 (0.9-2) Lipase (11-82) U/L Urine Color Urine Appearance (Clear) Urine pH (4.5-7.5) Ur Specific [place] (1.000-1.030) Urine Protein (Negative) Urine Glucose (UA) (Negative) Urine Ketones (Negative) Urine Blood (Negative) Urine Nitrite (Negative) Urine Bilirubin (Negative) Urine Urobilinogen (Negative) Ur Leukocyte Esterase (Negative) Urine WBC (Auto) (0-5) /hpf Urine RBC (Auto) (0-4) /hpf U Hyaline Cast (Auto) (0-5) /lpf U Epithel Cells (Auto) (0-5) /lpf Urine Bacteria (Auto) (Negative) Stl C. cayetanensis PCR (NotDetected) Stool Rotavirus A PCR (NotDetected) Stl Adenov F 40/41 PCR (NotDetected) Stool Astrovirus (PCR) (NotDetected) Stool Campylobacter PCR (NotDetected) Stl C. diff Tox B Gene Pending Stool Cryptosporidium PCR (NotDetected) Stl E.coli Shiga Tox PCR (NotDetected) Stl Enterotoxigenic E PCR (NotDetected) Stool EPEC (PCR) (NotDetected) Stool EAEC (PCR) (NotDetected) Stl E. histolytica PCR (NotDetected) Stool Giardia Lamblia PCR (NotDetected) Stool Salmonella PCR (NotDetected) Stool Sapovirus (PCR) (NotDetected) Stl P. shigelloides PCR (NotDetected) Stl Shigella/EIEC PCR (NotDetected) St Y.enterocolitica PCR (NotDetected) Stool Vibrio (PCR) (NotDetected) Stl Vibrio cholerae PCR (NotDetected) Stl Norovirus GI/GII PCR (NotDetected) SARS-CoV-2, RNA, NAAT (NEGATIVE) Blood Type Antibody Screen 02/22/22 02/21/22 02/21/22 Range/Units 06:36 Unknown 12:45 WBC 8.19 (4.8-10.8) K/ul RBC 4.10 (3.93-5.22) M/uL Hgb 12.2 (12.0-16.0) g/dl Hct 36.5 (34.1-44.9) % MCV 89.0 (80.0-100.0) fL MCH 29.8 (25.0-34.0) pg MCHC 33.4 (32.0-36.0) g/dL RDW Std Deviation 41.9 (36.4-46.3) fL RDW Coeff of Jesus 12.9 (11.5-14.5) % Plt Count 175 (130-400) K/uL MPV 8.9 L (9.4-12.3) fL Immature Gran % (Auto) % Neut % (Auto) % Lymph % (Auto) % [place] % (Auto) % Eos % (Auto) % Baso % (Auto) % Neut # (Auto) (1.4-6.5) K/uL Lymph # (Auto) (1.2-3.4) K/uL [place] # (Auto) (0.24-0.82) K/uL Eos # (Auto) (0-0.50) K/uL Baso # (Auto) (0-0.2) K/uL Immature Gran # (Auto) (0.00-0.02) K/uL ESR (0-30) mm/hr Sodium (136-145) mmol/L Potassium (3.5-5.1) mmol/L Chloride (98-107) mmol/L Carbon Dioxide (21-32) mmol/L Anion Gap (3-11) BUN (6-23) mg/dl Creatinine (0.6-1.2) mg/dl Est Cr Clr Drug Dosing ml/min Est GFR ( Amer) ml/min Est GFR (Non-Af Amer) ml/min BUN/Creatinine Ratio (10-20) Glucose (70-99(Fasting)) mg/dl Estimat Average Glucose Hemoglobin A1c Lactate 0.9 (0.4-2.0) mmol/L Calcium (8.5-10.1) mg/dl Total Bilirubin (0.2-1.0) mg/dl AST (13-39) U/L ALT (7-52) U/L Alkaline Phosphatase (34-104) U/L C-Reactive Protein (0-0.5) mg/dl Total Protein (6.0-8.3) gm/dl Albumin (3.4-5.0) gm/dl Globulin (2.5-4.0) gm/dl Albumin/Globulin Ratio (0.9-2) Lipase (11-82) U/L Urine Color Urine Appearance (Clear) Urine pH (4.5-7.5) Ur Specific [place] (1.000-1.030) Urine Protein (Negative) Urine Glucose (UA) (Negative) Urine Ketones (Negative) Urine Blood (Negative) Urine Nitrite (Negative) Urine Bilirubin (Negative) Urine Urobilinogen (Negative) Ur Leukocyte Esterase (Negative) Urine WBC (Auto) (0-5) /hpf Urine RBC (Auto) (0-4) /hpf U Hyaline Cast (Auto) (0-5) /lpf U Epithel Cells (Auto) (0-5) /lpf Urine Bacteria (Auto) (Negative) Stl C. cayetanensis PCR (NotDetected) Stool Rotavirus A PCR (NotDetected) Stl Adenov F 40/41 PCR (NotDetected) Stool Astrovirus (PCR) (NotDetected) Stool Campylobacter PCR (NotDetected) Stl C. diff Tox B Gene Stool Cryptosporidium PCR (NotDetected) Stl E.coli Shiga Tox PCR (NotDetected) Stl Enterotoxigenic E PCR (NotDetected) Stool EPEC (PCR) (NotDetected) Stool EAEC (PCR) (NotDetected) Stl E. histolytica PCR (NotDetected) Stool Giardia Lamblia PCR (NotDetected) Stool Salmonella PCR (NotDetected) Stool Sapovirus (PCR) (NotDetected) Stl P. shigelloides PCR (NotDetected) Stl Shigella/EIEC PCR (NotDetected) St Y.enterocolitica PCR (NotDetected) Stool Vibrio (PCR) (NotDetected) Stl Vibrio cholerae PCR (NotDetected) Stl Norovirus GI/GII PCR (NotDetected) SARS-CoV-2, RNA, NAAT NEGATIVE (NEGATIVE) Blood Type Antibody Screen 02/21/22 02/21/22 02/21/22 Range/Units 09:35 09:11 09:04 WBC (4.8-10.8) K/ul RBC (3.93-5.22) M/uL Hgb (12.0-16.0) g/dl Hct (34.1-44.9) % MCV (80.0-100.0) fL MCH (25.0-34.0) pg MCHC (32.0-36.0) g/dL RDW Std Deviation (36.4-46.3) fL RDW Coeff of Jesus (11.5-14.5) % Plt Count (130-400) K/uL MPV (9.4-12.3) fL Immature Gran % (Auto) % Neut % (Auto) % Lymph % (Auto) % [place] % (Auto) % Eos % (Auto) % Baso % (Auto) % Neut # (Auto) (1.4-6.5) K/uL Lymph # (Auto) (1.2-3.4) K/uL [place] # (Auto) (0.24-0.82) K/uL Eos # (Auto) (0-0.50) K/uL Baso # (Auto) (0-0.2) K/uL Immature Gran # (Auto) (0.00-0.02) K/uL ESR (0-30) mm/hr Sodium (136-145) mmol/L Potassium (3.5-5.1) mmol/L Chloride (98-107) mmol/L Carbon Dioxide (21-32) mmol/L Anion Gap (3-11) BUN (6-23) mg/dl Creatinine (0.6-1.2) mg/dl Est Cr Clr Drug Dosing ml/min Est GFR ( Amer) ml/min Est GFR (Non-Af Amer) ml/min BUN/Creatinine Ratio (10-20) Glucose (70-99(Fasting)) mg/dl Estimat Average Glucose Hemoglobin A1c Lactate (0.4-2.0) mmol/L Calcium (8.5-10.1) mg/dl Total Bilirubin (0.2-1.0) mg/dl AST (13-39) U/L ALT (7-52) U/L Alkaline Phosphatase (34-104) U/L C-Reactive Protein < 0.50 (0-0.5) mg/dl Total Protein (6.0-8.3) gm/dl Albumin (3.4-5.0) gm/dl Globulin (2.5-4.0) gm/dl Albumin/Globulin Ratio (0.9-2) Lipase (11-82) U/L Urine Color Yellow Urine Appearance Cloudy A (Clear) Urine pH 6.0 (4.5-7.5) Ur Specific [place] 1.009 (1.000-1.030) Urine Protein Negative (Negative) Urine Glucose (UA) Negative (Negative) Urine Ketones Negative (Negative) Urine Blood Negative (Negative) Urine Nitrite Negative (Negative) Urine Bilirubin Negative (Negative) Urine Urobilinogen Negative (Negative) Ur Leukocyte Esterase Negative (Negative) Urine WBC (Auto) 1-5 (0-5) /hpf Urine RBC (Auto) 0-4 (0-4) /hpf U Hyaline Cast (Auto) 1-5 (0-5) /lpf U Epithel Cells (Auto) >30 H (0-5) /lpf Urine Bacteria (Auto) 1+ H (Negative) Stl C. cayetanensis PCR Not Detected (NotDetected) Stool Rotavirus A PCR Not Detected (NotDetected) Stl Adenov F 40/41 PCR Not Detected (NotDetected) Stool Astrovirus (PCR) Not Detected (NotDetected) Stool Campylobacter PCR Not Detected (NotDetected) Stl C. diff Tox B Gene Stool Cryptosporidium PCR Not Detected (NotDetected) Stl E.coli Shiga Tox PCR Not Detected (NotDetected) Stl Enterotoxigenic E PCR Not Detected (NotDetected) Stool EPEC (PCR) Not Detected (NotDetected) Stool EAEC (PCR) Not Detected (NotDetected) Stl E. histolytica PCR Not Detected (NotDetected) Stool Giardia Lamblia PCR Not Detected (NotDetected) Stool Salmonella PCR Not Detected (NotDetected) Stool Sapovirus (PCR) Not Detected (NotDetected) Stl P. shigelloides PCR Not Detected (NotDetected) Stl Shigella/EIEC PCR Not Detected (NotDetected) St Y.enterocolitica PCR Not Detected (NotDetected) Stool Vibrio (PCR) Not Detected (NotDetected) Stl Vibrio cholerae PCR Not Detected (NotDetected) Stl Norovirus GI/GII PCR Not Detected (NotDetected) SARS-CoV-2, RNA, NAAT (NEGATIVE) Blood Type Antibody Screen 02/21/22 02/21/22 02/21/22 Range/Units 09:04 09:04 09:04 WBC 11.74 H (4.8-10.8) K/ul RBC 4.72 (3.93-5.22) M/uL Hgb 14.0 (12.0-16.0) g/dl Hct 41.1 (34.1-44.9) % MCV 87.1 (80.0-100.0) fL MCH 29.7 (25.0-34.0) pg MCHC 34.1 (32.0-36.0) g/dL RDW Std Deviation 40.3 (36.4-46.3) fL RDW Coeff of Jesus 12.7 (11.5-14.5) % Plt Count 242 (130-400) K/uL MPV 8.9 L (9.4-12.3) fL Immature Gran % (Auto) 0.8 % Neut % (Auto) 82.5 % Lymph % (Auto) 10.6 % [place] % (Auto) 5.4 % Eos % (Auto) 0.3 % Baso % (Auto) 0.4 % Neut # (Auto) 9.68 H (1.4-6.5) K/uL Lymph # (Auto) 1.25 (1.2-3.4) K/uL [place] # (Auto) 0.63 (0.24-0.82) K/uL Eos # (Auto) 0.04 (0-0.50) K/uL Baso # (Auto) 0.05 (0-0.2) K/uL Immature Gran # (Auto) 0.09 H (0.00-0.02) K/uL ESR 23 (0-30) mm/hr Sodium 139 (136-145) mmol/L Potassium 4.1 (3.5-5.1) mmol/L Chloride 103 (98-107) mmol/L Carbon Dioxide 29 (21-32) mmol/L Anion Gap 7 (3-11) BUN 13 (6-23) mg/dl Creatinine 0.68 (0.6-1.2) mg/dl Est Cr Clr Drug Dosing 94.5 ml/min Est GFR ( Amer) 108.7 ml/min Est GFR (Non-Af Amer) 93.7 ml/min BUN/Creatinine Ratio 19.1 (10-20) Glucose 126 H (70-99(Fasting)) mg/dl Estimat Average Glucose Hemoglobin A1c Lactate (0.4-2.0) mmol/L Calcium 9.6 (8.5-10.1) mg/dl Total Bilirubin 0.6 (0.2-1.0) mg/dl AST 16 (13-39) U/L ALT 16 (7-52) U/L Alkaline Phosphatase 66 (34-104) U/L C-Reactive Protein (0-0.5) mg/dl Total Protein 7.4 (6.0-8.3) gm/dl Albumin 4.4 (3.4-5.0) gm/dl Globulin 3.0 (2.5-4.0) gm/dl Albumin/Globulin Ratio 1.5 (0.9-2) Lipase 11 (11-82) U/L Urine Color Urine Appearance (Clear) Urine pH (4.5-7.5) Ur Specific [place] (1.000-1.030) Urine Protein (Negative) Urine Glucose (UA) (Negative) Urine Ketones (Negative) Urine Blood (Negative) Urine Nitrite (Negative) Urine Bilirubin (Negative) Urine Urobilinogen (Negative) Ur Leukocyte Esterase (Negative) Urine WBC (Auto) (0-5) /hpf Urine RBC (Auto) (0-4) /hpf U Hyaline Cast (Auto) (0-5) /lpf U Epithel Cells (Auto) (0-5) /lpf Urine Bacteria (Auto) (Negative) Stl C. cayetanensis PCR (NotDetected) Stool Rotavirus A PCR (NotDetected) Stl Adenov F 40/41 PCR (NotDetected) Stool Astrovirus (PCR) (NotDetected) Stool Campylobacter PCR (NotDetected) Stl C. diff Tox B Gene Stool Cryptosporidium PCR (NotDetected) Stl E.coli Shiga Tox PCR (NotDetected) Stl Enterotoxigenic E PCR (NotDetected) Stool EPEC (PCR) (NotDetected) Stool EAEC (PCR) (NotDetected) Stl E. histolytica PCR (NotDetected) Stool Giardia Lamblia PCR (NotDetected) Stool Salmonella PCR (NotDetected) Stool Sapovirus (PCR) (NotDetected) Stl P. shigelloides PCR (NotDetected) Stl Shigella/EIEC PCR (NotDetected) St Y.enterocolitica PCR (NotDetected) Stool Vibrio (PCR) (NotDetected) Stl Vibrio cholerae PCR (NotDetected) Stl Norovirus GI/GII PCR (NotDetected) SARS-CoV-2, RNA, NAAT (NEGATIVE) Blood Type Antibody Screen 02/21/22 Range/Units 09:04 WBC (4.8-10.8) K/ul RBC (3.93-5.22) M/uL Hgb (12.0-16.0) g/dl Hct (34.1-44.9) % MCV (80.0-100.0) fL MCH (25.0-34.0) pg MCHC (32.0-36.0) g/dL RDW Std Deviation (36.4-46.3) fL RDW Coeff of Jseus (11.5-14.5) % Plt Count (130-400) K/uL MPV (9.4-12.3) fL Immature Gran % (Auto) % Neut % (Auto) % Lymph % (Auto) % [place] % (Auto) % Eos % (Auto) % Baso % (Auto) % Neut # (Auto) (1.4-6.5) K/uL Lymph # (Auto) (1.2-3.4) K/uL [place] # (Auto) (0.24-0.82) K/uL Eos # (Auto) (0-0.50) K/uL Baso # (Auto) (0-0.2) K/uL Immature Gran # (Auto) (0.00-0.02) K/uL ESR (0-30) mm/hr Sodium (136-145) mmol/L Potassium (3.5-5.1) mmol/L Chloride (98-107) mmol/L Carbon Dioxide (21-32) mmol/L Anion Gap (3-11) BUN (6-23) mg/dl Creatinine (0.6-1.2) mg/dl Est Cr Clr Drug Dosing ml/min Est GFR ( Amer) ml/min Est GFR (Non-Af Amer) ml/min BUN/Creatinine Ratio (10-20) Glucose (70-99(Fasting)) mg/dl Estimat Average Glucose Hemoglobin A1c Lactate (0.4-2.0) mmol/L Calcium (8.5-10.1) mg/dl Total Bilirubin (0.2-1.0) mg/dl AST (13-39) U/L ALT (7-52) U/L Alkaline Phosphatase (34-104) U/L C-Reactive Protein (0-0.5) mg/dl Total Protein (6.0-8.3) gm/dl Albumin (3.4-5.0) gm/dl Globulin (2.5-4.0) gm/dl Albumin/Globulin Ratio (0.9-2) Lipase (11-82) U/L Urine Color Urine Appearance (Clear) Urine pH (4.5-7.5) Ur Specific [place] (1.000-1.030) Urine Protein (Negative) Urine Glucose (UA) (Negative) Urine Ketones (Negative) Urine Blood (Negative) Urine Nitrite (Negative) Urine Bilirubin (Negative) Urine Urobilinogen (Negative) Ur Leukocyte Esterase (Negative) Urine WBC (Auto) (0-5) /hpf Urine RBC (Auto) (0-4) /hpf U Hyaline Cast (Auto) (0-5) /lpf U Epithel Cells (Auto) (0-5) /lpf Urine Bacteria (Auto) (Negative) Stl C. cayetanensis PCR (NotDetected) Stool Rotavirus A PCR (NotDetected) Stl Adenov F 40/41 PCR (NotDetected) Stool Astrovirus (PCR) (NotDetected) Stool Campylobacter PCR (NotDetected) Stl C. diff Tox B Gene Stool Cryptosporidium PCR (NotDetected) Stl E.coli Shiga Tox PCR (NotDetected) Stl Enterotoxigenic E PCR (NotDetected) Stool EPEC (PCR) (NotDetected) Stool EAEC (PCR) (NotDetected) Stl E. histolytica PCR (NotDetected) Stool Giardia Lamblia PCR (NotDetected) Stool Salmonella PCR (NotDetected) Stool Sapovirus (PCR) (NotDetected) Stl P. shigelloides PCR (NotDetected) Stl Shigella/EIEC PCR (NotDetected) St Y.enterocolitica PCR (NotDetected) Stool Vibrio (PCR) (NotDetected) Stl Vibrio cholerae PCR (NotDetected) Stl Norovirus GI/GII PCR (NotDetected) SARS-CoV-2, RNA, NAAT (NEGATIVE) Blood Type O Positive Antibody Screen NEGATIVE Diagnostic Findings Abdomen/Pelvis CT 02/21/22 08:52 CT OF THE ABDOMEN AND PELVIS WITH CONTRAST CLINICAL HISTORY: Lower abdominal pain. Rectal bleeding. COMPARISON STUDY: None. TECHNIQUE: Following IV administration of 88 mL of Optiray, axial images of the abdomen and pelvis were obtained from the lung bases to the proximal femurs. Images were reviewed in the axial, sagittal, and coronal planes. IV contrast was administered without complication. Automated exposure control was utilized for the study. A dose lowering technique was utilized adhering to the principles of ALARA. CT DOSE: 879.27 mGycm FINDINGS: 4 mm right lower lobe nodule on image 55 of 421 is probably benign. No pneumatosis, free air or portal venous gas is present. Innumerable hepatic cysts are noted. These measure up to 3.9 cm. There is no biliary or pancreatic ductal dilatation. The spleen, adrenal glands, kidneys and pancreas are unremarkable. There is no hydronephrosis. There is no evidence for a bowel obstruction. The appendix is not visualized. There is moderate wall thickening with mild pericolonic stranding involving the distal transverse colon, splenic flexure of the colon and proximal descending colon. There is no abscess. No additional sites of bowel wall thickening are present. Atrial vasculature is patent. There is no lymphadenopathy. No acute fracture or suspicious lesion within the visualized skeletal structures is present. IMPRESSION: Moderate wall thickening of the distal transverse colon, splenic flexure and proximal descending colon. This represents a colitis. Although nonspecific, the distribution raises the possibility of ischemic colitis. ACT 112: Negative or not required by law. Electronically signed by: Horacio Arias M.D. 02/21/2022 10:21 AM PG Care Time/CCT Total # of Minutes Spent Total Time Spent with Patient: Total time spent is greater than 50% in coordination of care (as documented) at patient's floor/unit and/or counseling patient: Coding Diagnoses Colitis K52.9 HTN (hypertension) I10 Psoriasis L40.9 Anxiety F41.9 Hyperglycemia R73.9 Hyperlipidemia E78.5
--- NOTE | 2022-02-22 09:16 | Gastrointestinal Consultation ---
Date of Consultation February 22, 2022 Assessment & Plan (1) Colitis: Suspicious for ischemic colitis based on CT imaging. -Continue current plan as outlined by hospitalist team and general surgery with IV antibiotics, IV fluids, & supportive care. -Our office will contact her to arrange colonoscopy in 6-8 weeks to reduce the risk of bowel perforation. Supervising Physician Co-Signing Physician Notes Agree with TOMMY Roberts as above Abd: Soft, NT, ND, +BS Continue current therapy and supportive care Recommend colonoscopy in 6-8 weeks. My office will arrange her outpatient colonoscopy. History of Present Illness Attending Physician: Kat Neville MD History of Present Illness Patient is a 61 yo female with PMH of HTN, hyperlipidemia, previous hyperglycemia, Tubular adenoma of the colon, anxiety, psoriasis, and chronic fatigue disorder who presented to the [facility] ED on 02/21/22 with a chief complaint of abdominal pain and diarrhea. She notes that she began having multiple loose stools 2 nights ago with abdominal pain. No bleeding. She notes she tried Imodium without relief. She notes that prior to presenting to the ED, she developed BRBPR. She previously reported a history of "colitis" episodes when she was young. I reviewed her colonoscopies she has had throughout the [facility] system. There are no colonoscopy findings of chronic colitis. Last colonoscopy 2017 that indicated a tubular adenoma. She is hypertensive. WBC count mildly elevated at 11,740. CRP unremarkable. Lactate unremarkable. Biofire stool panel negative. CT of the abdomen/pelvis with the following findings: Moderate wall thickening of the distal transverse colon, splenic flexure and proximal descending colon. This represents a colitis. Although nonspecific, the distribution raises the possibility of ischemic colitis. Allergies Allergy/AdvReac Type Severity Reaction Status Date / Time morphine Allergy Unknown RASH AND Unverified 06/16/21 11:03 HALLUCINATIONS Home Medications Medication Instructions Recorded Confirmed Type lisinopril 40 mg tablet See Rx Instructions .Route 01/10/21 02/21/22 Rx .COMPLEX #90 tabs metoprolol succinate 100 mg See Rx Instructions .Route 01/10/21 02/21/22 Rx tablet,extended release 24 hr .COMPLEX #90 tabs betamethasone valerate 0.1 % 1 applic topical BID PRN skin 06/16/21 02/21/22 Rx topical cream irritation #45 grams rosuvastatin 5 mg tablet 5 mg PO DAILY #90 tabs 07/19/21 02/21/22 Rx alprazolam 0.25 mg tablet 0.25 mg PO DAILY PRN anxiety #30 02/08/22 02/21/22 Rx tabs ciprofloxacin HCl 500 mg tablet 500 mg PO BID 7 days #14 tabs 02/22/22 Rx metronidazole 500 mg tablet 500 mg PO Q8H 7 days #21 tabs 02/22/22 Rx Patient History Medical History Paravaginal defect Surgical History History of appendectomy History of left knee replacement 2014 History of thyroidectomy partial Family History Father , age 60 Myocardial infarction Hypertension Son Asthma Mother COPD (chronic obstructive pulmonary disease) Osteoarthritis Diabetes Grandmother (Maternal) Breast cancer Other Heart disease Denies family history of Ovarian cancer Prostate cancer Lung cancer Colorectal cancer Stroke Social History Smoking Status: Never smoker Second Hand Exposure: No; Hx Alcohol Use: Yes Alcohol type: beer Alcohol Intake Frequency: 2-4 x/Month Hx Substance Use: No Preferred Language: Bulgarian Communication Ability: Effective Visual Impairment: Limited Hearing Ability: Normal Planning Associate Required: No Beliefs That Will Affect Care: None marital status: Current Living Situation: Other current occupational status: employed 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 How many Children do You have: 2 Other Information That Helps Us Care for You: No Feels Safe at Home: Yes Safety Concerns: Feels Safe At This Time Childhood Exposure to Second-Hand Smoke: Yes caffeine: Yes Dental Care, Regularly: Yes Physical Activity Frequency: Does not Exercise Seatbelt Use: always Sunscreen Use: Yes Assistive Devices: None Review of Systems Constitutional: no fever and no chills Respiratory: no cough and no dyspnea Cardiovascular: no chest pain Gastrointestinal: + abdominal pain and + blood in stools Physical Exam Constitutional: well developed Respiratory: normal respiratory effort Gastrointestinal (Abdomen): normal bowel sounds, soft, nontender, no hepatosplenomegaly Musculoskeletal: Head/Neck/Chest: normocephalic Psychiatric: Orientation: alert and oriented x 3 Results & Data ([facility]) Vital Signs (Past 12 Hours) Vital Signs Temp Pulse Resp BP Pulse Ox O2 Del Method 02/22/22 07:30 36.9 C 66 16 145/74 H 93 Room Air 02/21/22 22:06 37.2 C 64 16 164/77 H 95 Room Air PG Care Time/CCT Total # of Minutes Spent Total Time Spent with Patient: Total time spent is greater than 50% in coordination of care (as documented) at patient's floor/unit and/or counseling patient: Coding Level of Care Code INP/OBS CONSULT LVL 4, 60 MIN Diagnoses Colitis K52.9
[2022-02-22 09:49] LABS: Estimated Average Glucose 120 mg/dl; Hemoglobin A1C 5.8 % (4.5-5.6)
--- NOTE | 2022-02-22 11:13 | Electrocardiogram Report ---
Test Reason : Blood Pressure : / mmHG Vent. Rate : 055 BPM Atrial Rate : 055 BPM P-R Int : 166 ms QRS Dur : 088 ms QT Int : 464 ms P-R-T Axes : 042 046 042 degrees QTc Int : 443 ms Poor data quality, interpretation may be adversely affected Sinus bradycardia Otherwise normal ECG When compared with ECG of 19-MAR-2012 10:49, ST no longer elevated in Inferior leads Confirmed by Erick Sewell ([id number]) on 02/22/2022 11:13:10 AM Referred By: REFERRED SELF Confirmed By:Erick Sewell
[2022-02-22] MEDS: ACETAMINOPHEN 1,000 MG/100 ML VIAL IV PRN (11:18)
[2022-02-22] MEDS ORDERED: cefTRIAXone SODIUM 2,000 MG in DEXTROSE 5% 50 ML IV SCH (13:00)
--- NOTE | 2022-02-22 15:33 | Surgery Progress Note ---
Date of Service February 22, 2022 Assessment & Plan (1) Colitis: Plan: afebrile vss no leukocytosis abdominal pain much improved Plan: Continue to advance diet to low fiber diet continue IV antibiotics continue medical management will need outpatient GI follow-up with colonoscopy in 4-[address] Pearson has seen and examined pt agrees with above. Admission and Anticipated Discharge Date Admission Date: February 21, 2022 Subjective feeling much better today abdominal pain much improved tolerated full liquids, soft diet ordered for dinner had diarrhea with blood again today but not as frequent Physical Exam Constitutional: WD/WN, vitals as above no acute distress and not ill appearing Neck: normal visual inspection and trachea midline Gastrointestinal (Abdomen): Inspection/Auscultation: abdomen normal to inspection; abdomen not distended Percussion/Palpation: + abdomen tender (mild in the mid to LLQ on deep palpation) and abdomen soft; no guarding and abdomen not rigid Skin: no rashes, warm and dry Psychiatric: A+Ox3, euthymic affect Results & Data ([facility]) Vital Signs (Past 12 Hours) Vital Signs Temp Pulse Resp BP BP Pulse Ox O2 Del Method 02/22/22 15:26 37.0 C 61 16 137/69 95 Room Air 02/22/22 07:30 36.9 C 66 16 145/74 H 93 Room Air Laboratory Results 02/22/22 02/22/22 02/22/22 Range/Units 08:23 06:36 06:36 WBC (4.8-10.8) K/ul RBC (3.93-5.22) M/uL Hgb (12.0-16.0) g/dl Hct (34.1-44.9) % MCV (80.0-100.0) fL MCH (25.0-34.0) pg MCHC (32.0-36.0) g/dL RDW Std Deviation (36.4-46.3) fL RDW Coeff of Jesus (11.5-14.5) % Plt Count (130-400) K/uL MPV (9.4-12.3) fL Sodium (136-145) mmol/L Potassium (3.5-5.1) mmol/L Chloride (98-107) mmol/L Carbon Dioxide (21-32) mmol/L Anion Gap (3-11) BUN (6-23) mg/dl Creatinine (0.6-1.2) mg/dl Est Cr Clr Drug Dosing ml/min Est GFR ( Amer) ml/min Est GFR (Non-Af Amer) ml/min BUN/Creatinine Ratio (10-20) Glucose (70-99(Fasting)) mg/dl Estimat Average Glucose 120 mg/dl Hemoglobin A1c 5.8 H (4.5-5.6) % Calcium (8.5-10.1) mg/dl Magnesium 1.8 (1.7-2.4) mg/dl Total Bilirubin (0.2-1.0) mg/dl AST (13-39) U/L ALT (7-52) U/L Alkaline Phosphatase (34-104) U/L Total Protein (6.0-8.3) gm/dl Albumin (3.4-5.0) gm/dl Globulin (2.5-4.0) gm/dl Albumin/Globulin Ratio (0.9-2) Stl C. diff Tox B Gene Negative Cdiff Gene (Neg) 02/22/22 02/22/22 Range/Units 06:36 06:36 WBC 8.19 (4.8-10.8) K/ul RBC 4.10 (3.93-5.22) M/uL Hgb 12.2 (12.0-16.0) g/dl Hct 36.5 (34.1-44.9) % MCV 89.0 (80.0-100.0) fL MCH 29.8 (25.0-34.0) pg MCHC 33.4 (32.0-36.0) g/dL RDW Std Deviation 41.9 (36.4-46.3) fL RDW Coeff of Jesus 12.9 (11.5-14.5) % Plt Count 175 (130-400) K/uL MPV 8.9 L (9.4-12.3) fL Sodium 140 (136-145) mmol/L Potassium 3.6 (3.5-5.1) mmol/L Chloride 108 H (98-107) mmol/L Carbon Dioxide 26 (21-32) mmol/L Anion Gap 6 (3-11) BUN 7 (6-23) mg/dl Creatinine 0.55 L (0.6-1.2) mg/dl Est Cr Clr Drug Dosing 115.8 ml/min Est GFR ( Amer) 116.5 ml/min Est GFR (Non-Af Amer) 100.5 ml/min BUN/Creatinine Ratio 12.7 (10-20) Glucose 105 H (70-99(Fasting)) mg/dl Estimat Average Glucose mg/dl Hemoglobin A1c (4.5-5.6) % Calcium 8.5 (8.5-10.1) mg/dl Magnesium (1.7-2.4) mg/dl Total Bilirubin 0.6 (0.2-1.0) mg/dl AST 11 L (13-39) U/L ALT 11 (7-52) U/L Alkaline Phosphatase 56 (34-104) U/L Total Protein 6.0 (6.0-8.3) gm/dl Albumin 3.7 (3.4-5.0) gm/dl Globulin 2.3 L (2.5-4.0) gm/dl Albumin/Globulin Ratio 1.6 (0.9-2) Stl C. diff Tox B Gene (Neg)
--- NOTE | 2022-02-22 16:07 | Discharge Summary ---
Date of Service February 22, 2022 Admission HPI Per Admitting Provider Carmelita is a 61 year old female with a PMH significant for HTN, hyperlipidemia, previous hyperglycemia, Tubular adenoma of the colon, anxiety, psoriasis, and chronic fatigue disorder who presented to the [facility] ED on 02/21/22 with a chief complaint of abdominal pain and diarrhea. In the ED the patient was found to be afebrile, hypertensive at 177/74, and stable on room air. Labs were significant for a leukocytosis of 11.74 with absolute neutrophil count of 9.68, stable Hgb and platelets, stable cr at 0.68 with electrolytes WNL, LFTs WNL, lipase of 11, UA not indicative of UTI, negative gastrointestinal biofire but no c. diff or lactate had been obtained at the time of the admission. CT of the abdomen/pelvis with IV contrast was read as "Moderate wall thickening of the distal transverse colon, splenic flexure and proximal descending colon. This represents a colitis. Although nonspecific, the distribution raises the possibility of ischemic colitis.". Prior to admission the patient was given 1L NSS, and 5 mg PO oxycodone. At the time of the exam the patient was lying comfortably in bed in no acute distress. She states that she started to have multiple, non-bloody bowel movements along with cramping lower abdominal pain last night. She took one dose initially of Imodium which did not resolve her symptoms. She continue to have worsening lower abdominal pain and diarrhea overnight. This am she started to develop bloody bowel movements consisting of bright red blood. She confirmed that the blood was in the toilet bowl and not just when she was wiping. She denies recent fevers or chills and was eating and drinking well up until last night when her symptoms started. She denies a history of afib or other conditions which would increase her risk of emboli. Of note, she had two episodes of colitis when she was younger. Her first episode was at the age of 17 and her last was at the age of 19. She denies being given a previous diagnosis of inflammatory bowel disease. At the time of my exam she states that her symptoms are slightly improved compared to her arrival. I spoke to her regarding code status, she is a full code. She would want her boyfriend, Nam Castellano ([phone]) or her son to make decisions for her if she could not make them herself. Please refer to Dr. García's attestation for any changes to the treatment plan Admission Exam Per Admitting Provider Physical Exam: General:In no acute distress, stated age, well-nourished, non-toxic appearing HEENT:Normocephalic, atraumatic, no scleral icterus, pupils around round, symmetrical, and reactive to light, moist mucus membranes, trachea midline, no thyromegaly Chest/Pulm:No respiratory distress, symmetrical chest expansion, clear breath sounds throughout Cardiac:RRR, systolic murmur noted (patient confirms this is not new) Abdomen:Negative for ascites and bruising, normoactive bowel sounds, soft, mildly tender to palpation in the lower abdominal sanchez otherwise non-tender to palpation Musculoskeletal:Symmetrical and without signs of acute trauma, upper and lower extremities with full ROM, no atrophy, spasticity, or flaccidity Extremities:Radial, dorsalis pedis, and posterior tibial pulses are intact and symmetrical, no edema noted in the BL LE's Skin:Warm, dry, no rashes , lesions, or scars noted Neuro:Alert and oriented to person, place, month, year, and president, no focal defects, CN II-XII tested and intact, finger to nose test negative, no tremors noted Psych:No acute distress, calm and cooperative during the exam Principal Diagnosis Ischemic Colitis Discharge Exam General: WD/WN female sitting up in bed, NAD HEENT: head normocephalic, atraumatic, mmm, trachea midline without deviation Resp: CTAB, no w/c/r, on room air CV: RRR,+systolic murmur, no pitting edema/calf tenderness GI: +BS, soft, minimally tender LLQ, no guarding/rigidity : no salomon MSK/Neuro: moves all extremities, no focal deficits Psych: AOx3, pleasant and cooperative Skin: warm, dry, psorasis Discharge Data Allergies Allergy/AdvReac Type Severity Reaction Status Date / Time morphine Allergy Unknown RASH AND Unverified 06/16/21 11:03 HALLUCINATIONS Consultations 02/21/22 12:20 ED Decision to Admit Stat 02/21/22 12:46 Consult General Surgery Routine 02/22/22 08:46 Consult Gastroenterology Routine Ordered Studies Abdomen/Pelvis CT 02/21/22 08:52 CT OF THE ABDOMEN AND PELVIS WITH CONTRAST CLINICAL HISTORY: Lower abdominal pain. Rectal bleeding. COMPARISON STUDY: None. TECHNIQUE: Following IV administration of 88 mL of Optiray, axial images of the abdomen and pelvis were obtained from the lung bases to the proximal femurs. Images were reviewed in the axial, sagittal, and coronal planes. IV contrast was administered without complication. Automated exposure control was utilized for the study. A dose lowering technique was utilized adhering to the principles of ALARA. CT DOSE: 879.27 mGycm FINDINGS: 4 mm right lower lobe nodule on image 55 of 421 is probably benign. No pneumatosis, free air or portal venous gas is present. Innumerable hepatic cysts are noted. These measure up to 3.9 cm. There is no biliary or pancreatic ductal dilatation. The spleen, adrenal glands, kidneys and pancreas are unremarkable. There is no hydronephrosis. There is no evidence for a bowel obstruction. The appendix is not visualized. There is moderate wall thickening with mild pericolonic stranding involving the distal transverse colon, splenic flexure of the colon and proximal descending colon. There is no abscess. No additional sites of bowel wall thickening are present. Atrial vasculature is patent. There is no lymphadenopathy. No acute fracture or suspicious lesion within the visualized skeletal structures is present. IMPRESSION: Moderate wall thickening of the distal transverse colon, splenic flexure and proximal descending colon. This represents a colitis. Although nonspecific, the distribution raises the possibility of ischemic colitis. ACT 112: Negative or not required by law. Electronically signed by: Horacio Arias M.D. 02/21/2022 10:21 AM Hospital Course (1) Colitis: Presented with severe abdominal pain and diarrhea CTAP w/ IV contrast -- Moderate wall thickening of the distal transverse colon, splenic flexure and proximal descending colon. This represents a colitis. Although nonspecific, the distribution raises the possibility of ischemic colitis. did note patency of arteries Lactic 0.9, ESR 23, CRP <0.5 General surgery, GI consulted Did develop bloody diarrhea, slowed IVF provided, IV abx with Ceftriaxone/Flagyl -- decision to d/c on Cipro/Flagyl to complete course Antiemetics/pain control PRN cdiff negative Advanced to low fiber diet -- to continue at discharge x2 weeks, advance as tolerated To be provided information for low fiber diet at discharge Needing outpatient c-scope once healed from current -- GI to arrange, confirmed w/ GI today but will have nurse navigator touch base tomorrow to ensure this is taken care of. (2) HTN (hypertension): HTN on admit, likely 2nd to pain Continued on lisinopril, metoprolol BP 137/69 and stable on repeat (3) Psoriasis: Continued topical betamethasone (4) Anxiety: Continued prn Xanax --> Would recommend PCP try and wean her off chronic xanax therapy and transition to an antidepressant (5) Hyperglycemia: Hx pre-DM, A1c 5.9 on 06/16 -- repeat 5.8 F/u PCP (6) Hyperlipidemia: Continued statin -- on crestor 5mg daily consider increasing as outpatient given prior cholesterol level 250s prior PCP notes patient stopped simvastatin in the past due to myalgia -- needs continued discussion/potentially switch to new agent, isaac given family hx pre-mature atherosclerosis in her father to be on Mediterranean diet/increase exercise Plan offered to keep patient overnight to continue monitoring/however patient really wanted to go home to continue low fiber diet, cipro/flagyl at discharge to return if any worsening/further bleeding to have outpatient c--scope in 6-8 weeks Total Time Total Time Spent Total Time Spent (In Minutes): 50 Discharge Plan Discharge Items Patient Disposition: Home - Self-Care Reason For Visit: ABD PAIN Discharge Diagnosis: Colitis Condition on Discharge: Good Goals: You have been hospitalized for an acute medical problem. During your stay at [facility], we have made an effort to correct the problem that brought you to the hospital while keeping you as comfortable as possible. Medications were used to bring your condition under control and your discharge instructions will include directions for any medications you should take after leaving the hospital. Please make sure you see your Primary Care Provider as part of your follow up plan. Activity: As commented below Non-emergency contact: Primary Care Provider and Unemployment Benefits Claims Taker Call non-emergency contact if: you have any medication questions, your symptoms worsen, your pain is concerning for you and you have a fever Follow-up/Referrals: Vamshi Browne MD [Primary Care Provider] - 03/03/22 11:00 am Russel Katz DO [Physician] - (2 months) Diet: Heart Healthy and Low Fiber Diet Comment: low fiber, advance as tolerated Addtl Attending Provider Instructions: You have been hospitalized for abdominal pain, nausea, and vomiting. You were found to have evidence for colitis on imaging, and general surgery and GI were consulted and you were managed conservatively with IV fluids, pain control, and antibiotics. You will need follow up with GI (Dr Katz) in the next 6-8 weeks for colonoscopy. Please follow up with primary care in the next 7-10 days to monitor your progress. Please return to the ER with any worsening abdominal pain, inability to keep up with oral intake, chest pain, shortness of breath, or for any other symptoms concerning for you. It has been a pleasure being a part of the medical team providing for you while you have been in the hospital. Take care! Pending Studies at Discharge: No Stand-Alone Forms: My [facility] Medications and DC Order Prescriptions: New ciprofloxacin HCl 500 mg tablet 500 mg PO BID 7 Days Qty: 14 0RF metronidazole 500 mg tablet 500 mg PO Q8H 7 Days Qty: 21 0RF Continued lisinopril 40 mg tablet See Rx Instructions .ROUTE .COMPLEX Qty: 90 3RF Dose Instruction: TAKE 1 TABLET BY MOUTH DAILY Rx Instructions: TAKE 1 TABLET BY MOUTH DAILY metoprolol succinate 100 mg tablet extended release 24 hr See Rx Instructions .ROUTE .COMPLEX Qty: 90 3RF Dose Instruction: TAKE 1 TABLET BY MOUTH EVERY DAY Rx Instructions: TAKE 1 TABLET BY MOUTH EVERY DAY rosuvastatin 5 mg tablet 5 mg PO DAILY Qty: 90 3RF alprazolam 0.25 mg tablet 0.25 mg PO DAILY PRN (Reason: anxiety) Qty: 30 0RF betamethasone valerate 0.1 % cream 1 applic TOP BID PRN (Reason: skin irritation) Qty: 45 1RF Discharge Orders: Discharge Order (Routine); Ordered 02/22/22 Ordered By: Laisha Vaughn/Other Patient Handouts: Low-Fiber Diet Admission Data Admit Date/Time: 02/21/22 12:01 Attending Provider: Kat Neville Admit Provider: Lobo García Primary Care Provider: Vamshi Browne Other Providers: Marino Pearson ; Lobo García ; Russel Katz Other Interventions: Discharge Summary Assessment (RN) Last Done: 02/22/22 18:10 Supervising Physician Co-Signing Physician Notes PA Supervision Note: I personally saw and examined the patient. I verified all jean points and agree with FRANK Liriano with the following exceptions and/or additions: S-Pt feeling much better. Did have some blood in a BM this AM but none since then, adv diet to low fiber and tolerating. No further abd pain. O- Vitals reviewed Gen: [AAOx3, NAD] HEENT: [anicteric sclerae, EOMI] CV: [RRR no mgr nl S1S2] Pulm: [CTAB no wcr] Abd: [+BS soft NT ND no masses or hernias] Ext: [no edema, 2+ DP pulses] Skin: [no rashes, warm/dry] Neuro: [full strength throughout] A/P-61 yo female here with colitis and hematochezia, infectious vs ischemic. Improved, vital sstable, no significant blood loss. Seen by GI and Surgery. Dc to home with empiric antibiotics, close f/u with GI for colonoscopy Coding Level of Care Code HOSP INP/OBS DISCH >30 MIN Diagnoses Colitis K52.9 HTN (hypertension) I10 Psoriasis L40.9 Anxiety F41.9 Hyperglycemia R73.9 Hyperlipidemia E78.5
== END 2022-02-22 19:05 | disposition home or self-care (01) ==
LOC: EDINP 07:54 → ED 07:54 → 3N 09:58 → SUATTDRO 12:01 → EDINP 13:27 → 3N 20:28